=== PATIENT | female | born 1960 | race Caucasian/White ===

== ENCOUNTER 2020-10-14 08:56 | Outpatient (CLI) | payer BC, OTHER ==
[~2020-10-14] VITALS: Ht 157.5 cm; Wt 79.0 kg
[2020-10-14] MEDS ORDERED: ALPR1TAB2 PO (12:25)
[2020-10-14] MEDS ORDERED: AMIT50TA3 PO (12:25)
[2020-10-14] MEDS ORDERED: DICL75TA2 PO (12:25)
[2020-10-14] MEDS ORDERED: BACL10TA PO (12:25)
[2020-10-14] MEDS ORDERED: METF500S5 PO (12:25)
[2020-10-14] MEDS ORDERED: CITA40TA19 PO (12:25)
[2020-10-14] MEDS ORDERED: TRAM50TA3 PO (12:25)
[2020-10-14] MEDS ORDERED: LISI10TA25 PO (12:25)
[2020-10-14] MEDS ORDERED: HYDR-3817 PO (12:25)
== END 2020-10-14 12:57 | disposition home or self-care (01) ==
LOC: PREOP 08:56
PROVIDERS: ATTEND Urology
DX: Z01.818 Encounter for other preprocedural examination (principal)

== ENCOUNTER 2020-10-18 07:21 | Day surgery (SDC) | payer BC, OTHER ==
[2020-10-18] VITALS (12 sets, daily range): BP systolic 117–176; BP diastolic 61–92
[~2020-10-18] VITALS: Ht 157.5 cm; Wt 79.0 kg
[~2020-10-18 07:21] MED LIST: ALPR1TAB2 PO; AMIT50TA3 PO; BACL10TA PO; CITA40TA19 PO; DICL75TA2 PO; HYDR-3817 PO; LISI10TA25 PO; METF500S5 PO; TRAM50TA3 PO
[2020-10-18] MEDS ORDERED: cefTRIAXone FOR IV USE 1,000 MG in WATER (STERILE) FOR INJECTION 10 ML IV ONE (07:30)
[2020-10-18] MEDS: LACTATED RINGERS 1,000 ML IV PRN ×2 (07:52→09:27)
--- NOTE | 2020-10-18 08:13 | Progress Note-Pre Operative ---
Pre-Operative Progress Note H&P Reviewed The H&P was reviewed, patient examined and no changes noted. Date Seen by Provider: Oct 18, 2020 Time Seen by Provider: 08:13 Date H&P Reviewed: Oct 18, 2020 Time H&P Reviewed: 08:13 Pre-Operative Diagnosis: CYSTOCELE AND SOFI KATARZYNA CRAIN MD Oct 18, 2020 08:13
[2020-10-18] MEDS ORDERED: CATHETER FLUSH 10 ML SYR IV PRN (08:15)
--- NOTE | 2020-10-18 08:17 | Progress Note-Post Operative ---
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
[2020-10-18] MEDS ORDERED: ESTRADIOL VAGINAL CREAM 42.5 GM (ESTRACE) VG ONE (08:18)
[2020-10-18] MEDS ORDERED: LIDOCAINE/EPI 1%-1:100,000 (XYLOCAINE) 20ML ONE (08:18)
[2020-10-18] MEDS ORDERED: SEVOFLURANE (ULTANE) 15 ML INHAL SOLN ONE ×2 (08:24→09:22)
[2020-10-18] MEDS ORDERED: ONDANSETRON 4 MG/2 ML (SDV) Z0FRAN ONE (08:24)
[2020-10-18] MEDS ORDERED: LIDOCAINE PF 2% 5 ML (XYLOCAINE) VIAL ONE (08:24)
[2020-10-18] MEDS ORDERED: proPOfol 200 MG/20 ML (DIPRIVAN) VIAL IV ONE (08:24)
[2020-10-18] MEDS ORDERED: MIDAZOLAM 2 MG/2 ML (VERSED) VIAL ONE (08:25)
[2020-10-18] MEDS ORDERED: fentaNYL INJ 100 MCG/2 ML AMP ONE (08:25)
[2020-10-18] MEDS ORDERED: ROCURONIUM 10 MG/ML 5 ML SYRINGE IV ONE (08:25)
[2020-10-18] MEDS ORDERED: GLYCOPYRROLATE 0.2 MG/ML (ROBINUL) 2 ML VIAL ONE (09:19)
[2020-10-18] MEDS ORDERED: NEOSTIGMINE 3 MG/3 ML VIAL ONE (09:19)
[2020-10-18] MEDS ORDERED: ONDANSETRON 4 MG/2 ML (SDV) Z0FRAN IVP PRN (10:00)
[2020-10-18] MEDS ORDERED: MEPERIDINE (DEMEROL) INJ 50 MG/ML IVP ONE (10:00)
[2020-10-18] MEDS ORDERED: morphine INJ 10 MG/ML 1ML (SYR OR VIAL) IVP ONE (10:00)
[2020-10-18] MEDS ORDERED: HYDROmorphone 2 MG/ML VIAL (DILAUDID) IV ONE (10:00)
--- NOTE | 2020-10-18 10:39 | Anesthesia-General Post-Op ---
General Patient Condition Mental Status/LOC: Same as Preop Cardiovascular: Satisfactory Nausea/Vomiting: Absent Respiratory: Satisfactory Pain: Controlled Complications: Absent Post Op Complications Complications None Follow Up Care/Instructions Patient Instructions None needed. Anesthesia/Patient Condition Patient Condition Patient is doing well, no complaints, stable vital signs, no apparent adverse anesthesia problems. No complications reported per nursing. JESUS BATISTA CRNA Oct 18, 2020 10:39
[2020-10-18] MEDS: KETOROLAC 30 MG/ML VIAL IV PRN ×2 (11:20→18:15)
[2020-10-18] MEDS: LACTATED RINGERS 1,000 ML IV SCH (13:22)
--- NOTE | 2020-10-18 15:57 | OPERATIVE REPORT ---
DATE OF SERVICE: 10/18/2020 PREOPERATIVE DIAGNOSES: Cystocele and stress urinary incontinence. POSTOPERATIVE DIAGNOSES: Cystocele and stress urinary incontinence. OPERATION PERFORMED: Anterior repair, pubovaginal sling and cystoscopy. SURGEON: Hector Crain MD ANESTHESIA: General. COMPLICATIONS: None. DESCRIPTION OF PROCEDURE: Under satisfactory general anesthesia, the patient in extended lithotomy position, the abdomen, genitalia and thigh with separate vaginal prep were prepped and draped in the usual sterile fashion. Tovar catheter was inserted and the bladder was drained. Anterior vaginal wall was infiltrated with 2% lidocaine jelly. An incision was made vertically in the anterior vaginal wall and dissection was carried down to the fascial layer and then toward the pubic arch for insertion of the sling. The fascia was approximated with interrupted 2-0 Vicryl giving excellent support to the bladder. Then, the Desara One Sling device was passed using the described technique. The sling was sitting nicely under the mid urethra with no twist or tension and passage of a curved hemostat easily between it and the underlying tissue. I removed the Tovar catheter to perform a cystoscopy to confirm the integrity of the bladder, ureteral orifices and urethra with no foreign body, left the bladder half full and removed the cystoscope to perform a manual Valsalva maneuver that was negative. I reinserted a Tovar catheter a day again draining clear fluid. I excised the excess vaginal mucosa and then approximated the vaginal mucosa with a running 2-0 Vicryl Rapide suture type. Two grams Estrace vaginal pack was inserted. Needle, sponge, instrument counts were correct x2. Estimated blood loss was less than 50 mL, none of which was replaced. The patient tolerated the procedure and anesthesia well and was sent to recovery room in stable condition. Job ID: [id number] DocumentID: [id number] Dictated Date: 10/18/2020 09:40:40 Reflow Operator Date: 10/18/2020 15:56:40 Dictated By: HECTOR CRAIN MD
[2020-10-19 00:40] VITALS: BP 123/69
[2020-10-19] MEDS: LACTATED RINGERS 1,000 ML IV SCH ×2 (00:40→06:13)
[2020-10-19] MEDS: KETOROLAC 30 MG/ML VIAL IV PRN ×2 (00:40→06:24)
[2020-10-19 03:40] VITALS: BP 113/65
[2020-10-19 09:30] VITALS: BP 127/72
--- NOTE | 2020-10-19 09:49 | Progress Note - Urology ---
Progress Note-Urology Progress Notes/Assess & Plan Progress/Assessment & Plan AFEBRILE, VSS. DOING AND FEELING VERY WELL. NO COMPLAINTS. VOIDING ON OWN FEELS EMPTYING WELL. DRY, NO LEAKAGE. HAPPY. CHECK PVR AND MANAGE ACCORDINGLY. Final Diagnosis CYSTOCELE AND SOFI KATARZYNA CRAIN MD Oct 19, 2020 09:49
[2020-10-19] MEDS ORDERED: CIPR-226 PO (10:17)
[2020-10-19] MEDS ORDERED: TRAM50TA3 PO (10:18)
[2020-10-19 10:45] VITALS: BP 127/72
== END 2020-10-19 10:45 | disposition home or self-care (01) ==
LOC: SDC 07:21 → WS 10:50 → SDC 10-19 10:45
PROVIDERS: ATTEND Urology
DX: N81.10 Cystocele, unspecified (principal); N39.3 Stress incontinence (female) (male); I10 Essential (primary) hypertension; E11.9 Type 2 diabetes mellitus without complications; Z79.84 Long term (current) use of oral hypoglycemic drugs; Z79.899 Other long term (current) drug therapy
CPT/HCPCS: 57240; 57288; 82962; 87081; 94664; C1771

== ENCOUNTER 2021-08-25 22:24 | Emergency (ER) | payer OTHER ==
[~2021-08-25] VITALS: Ht 157.5 cm; Wt 78.9 kg
[~2021-08-25 22:24] MED LIST changes: +CIPR-226 PO
[2021-08-25 23:00] VITALS: BP 157/96
--- NOTE | 2021-08-26 02:59 | ED Fall/Injury ---
General Chief Complaint: Trauma-Non Activation Stated Complaint: FALL Nursing Triage Note: Pt arrives via POV from work at [employer] [facility] with c/o right knee pain post fall. 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 Pt reports landing on her right knee, states she has had multiple sx on this knee in the past. Pt ambulatory on arrival to ED with steady gait. Source: patient Exam Limitations: no limitations History of Present Illness Date Seen by Provider: Aug 26, 2021 Allergies and Home Medications Allergies Coded Allergies: No Known Drug Allergies (Unverified , 10/14/20) Patient Home Medication List Alprazolam (Xanax) 1 Mg Tablet, 1 MG PO BID PRN for ANXIETY, (Reported) Entered as Reported by: LI BANKS on 10/14/20 1225 Amitriptyline HCl (Amitriptyline HCl) 50 Mg Tablet, 50 MG PO DAILY, (Reported) Entered as Reported by: LI BANKS on 10/14/20 1225 Baclofen (Baclofen) 10 Mg Tablet, 10 MG PO QID PRN for SPASMS, (Reported) Entered as Reported by: LI BANKS on 10/14/20 1225 Ciprofloxacin HCl (Cipro) 250 Mg Tablet, 250 MG PO BID Prescribed by: SHEEBA SKELTON on 10/19/20 1017 Citalopram Hydrobromide (Celexa) 40 Mg Tablet, 40 MG PO DAILY, (Reported) Entered as Reported by: LI BANKS on 10/14/20 1225 Diclofenac Sodium (Diclofenac Sodium) 75 Mg Tablet.dr, 150 MG PO DAILY, (Reported) Entered as Reported by: LI BANKS on 10/14/20 1225 Lisinopril (Lisinopril) 10 Mg Tablet, 10 MG PO DAILY, (Reported) Entered as Reported by: LI BANKS on 10/14/20 1225 Metformin HCl (Metformin HCl) 500 Mg/5 Ml Solution, 1,000 MG PO DAILY, (Reported) Entered as Reported by: LI BANKS on 10/14/20 1225 Tramadol HCl (Tramadol HCl) 50 Mg Tablet, 50 MG PO Q4H Prescribed by: SHEEBA SKELTON on 10/19/20 1018 Past Bpyvodz-Lqmrdr-Ttpwec Hx Patient Social History Tobacco Use?: Yes Tobacco type used: Cigarettes Smoking Status: Current Everyday Smoker Use of E-Cig and/or Vaping dev: No Substance use?: No Alcohol Use?: No Pt feels they are or have been: No Immunizations Up To Date Influenza Vaccine Up-to-Date: Yes; Up-to-Date COVID19 Vaccine Covering Machine Operator: Profound Seasonal Allergies Seasonal Allergies: Yes (TAKES CLARITIN) Past Medical History Surgeries: Yes Abdominal, Gallbladder, Hysterectomy, Orthopedic, Tubal Ligation Respiratory: Yes Chronic Bronchitis Currently Using CPAP: No Currently Using BIPAP: No Cardiac: Yes High Cholesterol, Hypertension Neurological: No 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 oz. kg; 31.00 BMI Method: Progress/Results/Core Measures Results/Orders My Orders Orders - RENEE JEAN MD Knee, Right, 3 Views (08/26/21 00:29) Vital Signs/I&O 08/25/21 23:00 Temp 36.7 Pulse 95 Resp 18 B/P (MAP) 157/96 (116) Pulse Ox 98 O2 Delivery Room Air Blood Pressure Mean: 116 Departure Impression Primary Impression: Contusion of right knee Qualified Codes: S80.01XA - Contusion of right knee, initial encounter Additional Impression: Fall on same level Qualified Codes: W18.30XA - Fall on same level, unspecified, initial encounter Disposition: HOME, SELF-CARE Condition: Stable Departure-Patient Inst. Decision time for Depature: 02:55 Referrals: MIKAYLA MCINTOSH MD (PCP) Primary Care Physician Patient Instructions: Contusion (DC) Add. Discharge Instructions: You may ice in 20-minute intervals and take your usual diclofenac and Ultram for pain. Rest your knee this morning until you are able to get the official radiology read. Please call after 8:00 to obtain the official radiologist report. Call with questions or concerns. Return to care if you have worsening symptoms. All discharge instructions reviewed with patient and/or family. Voiced understanding. RENEE JEAN MD Aug 26, 2021 02:59
--- NOTE | 2021-08-26 06:54 | Diagnostic Imaging Report ---
INDICATION: Knee pain post fall, tripped. History of multiple surgeries on knee. TECHNIQUE: 3 views of the right knee CORRELATION STUDY: None FINDINGS: There is moderate joint space narrowing both medially and laterally. Marginal osteophyte formation is noted particularly laterally. Advanced degenerative change also appears to be present at the patellofemoral compartment with joint space narrowing and spur formation. Mild soft tissue edema. IMPRESSION: 1. Negative for acute bony abnormality of the knee. Advanced multi-compartment degenerative change. Dictated by: Dictated on workstation # [id number]
== END 2021-08-26 03:33 | disposition home or self-care (01) ==
LOC: EDUNIT# 22:24 → ER 22:26
DX: S80.01XA Contusion of right knee, initial encounter (principal); I10 Essential (primary) hypertension; F17.210 Nicotine dependence, cigarettes, uncomplicated; Z79.899 Other long term (current) drug therapy; W01.0XXA Fall on same level from slipping, tripping and stumbling without subsequent striking against object, initial encounter; Y92.59 Other trade areas as the place of occurrence of the external cause; Y99.0 Civilian activity done for income or pay
CPT/HCPCS: 73562

== ENCOUNTER 2022-01-17 05:33 | Outpatient (CLI) | payer OTHER ==
[~2022-01-17] VITALS: Ht 157.5 cm; Wt 73.0 kg
[2022-01-17 09:35] LABS: BASOPHILS # (AUTO) 0.1 10^3/uL (0.0-0.1); BASOPHILS % (AUTO) 1 % (0-10); EOSINOPHILS # (AUTO) 0.2 10^3/uL (0.0-0.3); EOSINOPHILS % (AUTO) 3 % (0-10); HEMATOCRIT 37 % (35-52); HEMOGLOBIN 12.3 g/dL (11.5-16.0); LYMPHOCYTES # (AUTO) 2.1 10^3/uL (1.0-4.0); LYMPHOCYTES % (AUTO) 37 % (12-44); MEAN CORPUSCULAR HEMOGLOBIN 30 pg (25-34); MEAN CORPUSCULAR HGB CONC 33 g/dL (32-36); MEAN CORPUSCULAR VOLUME 91 fL (80-99); MEAN PLATELET VOLUME 11.3 fL (9.0-12.2); MONOCYTES # (AUTO) 0.4 10^3/uL (0.0-1.0); MONOCYTES % (AUTO) 8 % (0-12); NEUTROPHILS # (AUTO) 2.9 10^3/uL (1.8-7.8); NEUTROPHILS % (AUTO) 51 % (42-75); PLATELET COUNT 251 10^3/uL (130-400); WHITE BLOOD COUNT 5.7 10^3/uL (4.3-11.0)
[2022-01-17 09:35] LABS: CLARITY,URINE CLEAR; COLOR,URINE YELLOW; GLUCOSE, URINE (UA) NEGATIVE (NEGATIVE); KETONES,URINE TRACE (NEGATIVE); LEUKOCYTE ESTERASE ,URINE NEGATIVE (NEGATIVE); NITRITE,URINE NEGATIVE (NEGATIVE); PROTEIN,URINE TRACE (NEGATIVE)
[2022-01-17 09:39] LABS: ALBUMIN 4.3 GM/DL (3.2-4.5); INR 0.9 (0.8-1.4); POTASSIUM 4.2 MMOL/L (3.6-5.0); PROTHROMBIN TIME PATIENT 12.9 SEC (12.2-14.7)
[2022-01-17 09:40] LABS: CALCIUM 9.3 MG/DL (8.5-10.1)
[2022-01-17 09:41] LABS: TOTAL PROTEIN 6.8 GM/DL (6.4-8.2)
[2022-01-17 09:43] LABS: BILIRUBIN,TOTAL 0.3 MG/DL (0.1-1.0)
[2022-01-17 09:45] LABS: CREATININE SERUM 1.07 MG/DL (0.60-1.30)
[2022-01-17 09:56] LABS: BACTERIA,URINE NEGATIVE /HPF; BILIRUBIN,URINE 1+ (NEGATIVE); SQUAMOUS EPITHELIAL CELL,UR 0-2 /HPF; WBC,URINE RARE /HPF
[2022-01-17 09:57] LABS: ERYTHROCYTE SEDIMENTATION RATE 9 MM/HR (0-30)
--- NOTE | 2022-01-17 10:01 | Diagnostic Imaging Report ---
Indication: Preop for knee replacement surgery. Time of Exam: 9:36 AM No prior chest radiographs are available for comparison. Heart size normal. Lungs are clear of acute infiltrates. The pulmonary vascularity is normal. There is no effusion or pneumothorax. There are calcifications at the costochondral junctions bilaterally. Impression: No acute cardiopulmonary process is detected. Dictated by: Dictated on workstation # [id number]
[2022-01-17] MEDS ORDERED: ALBU18HF2 INH (10:09)
[2022-01-17] MEDS ORDERED: ATOR20TA66 PO (10:12)
[2022-01-17] MEDS ORDERED: BACL10TA PO (10:12)
== END 2022-01-18 09:43 ==
LOC: PREOP 05:33
PROVIDERS: ATTEND Orthopaedic Surgery
DX: Z01.818 Encounter for other preprocedural examination (principal); M17.11 Unilateral primary osteoarthritis, right knee
CPT/HCPCS: 36415; 71046; 80053; 81000; 82308; 85025; 85610; 85652; 86850; 86900; 86901; 87081; 93005

== ENCOUNTER 2022-01-21 11:03 | Observation (INO) | payer OTHER ==
[~2022-01-21] VITALS: Ht 157.4 cm; Wt 70.7 kg
[~2022-01-21 11:03] MED LIST changes: +ALBU18HF2 INH; +ATOR20TA66 PO
[2022-01-21] MEDS ORDERED: NS IV 1000 ML 1,000 ML IV SCH ×3 (11:30→15:45)
[2022-01-21] MEDS ORDERED: NALOXONE 2 MG/2 ML (NARCAN) SYR IV ONE ×2 (11:30→12:30)
[2022-01-21 11:31] LABS: BASOPHILS # (AUTO) 0.1 10^3/uL (0.0-0.1); BASOPHILS % (AUTO) 0 % (0-10); EOSINOPHILS % (AUTO) 0 % (0-10); HEMATOCRIT 34 % (35-52); HEMOGLOBIN 11.5 g/dL (11.5-16.0); LYMPHOCYTES # (AUTO) 1.6 10^3/uL (1.0-4.0); LYMPHOCYTES % (AUTO) 8 % (12-44); MEAN CORPUSCULAR HEMOGLOBIN 31 pg (25-34); MEAN CORPUSCULAR HGB CONC 34 g/dL (32-36); MEAN CORPUSCULAR VOLUME 91 fL (80-99); MONOCYTES # (AUTO) 1.3 10^3/uL (0.0-1.0); MONOCYTES % (AUTO) 7 % (0-12); NEUTROPHILS # (AUTO) 15.8 10^3/uL (1.8-7.8); NEUTROPHILS % (AUTO) 84 % (42-75); PLATELET COUNT 247 10^3/uL (130-400); WHITE BLOOD COUNT 18.8 10^3/uL (4.3-11.0)
[2022-01-21 11:40] LABS: CHLORIDE 105 MMOL/L (98-107); POTASSIUM 4.8 MMOL/L (3.6-5.0); SODIUM 138 MMOL/L (135-145)
[2022-01-21 11:41] LABS: ALBUMIN 4.3 GM/DL (3.2-4.5)
[2022-01-21 11:42] LABS: CALCIUM 8.9 MG/DL (8.5-10.1)
[2022-01-21 11:43] LABS: GLUCOSE 149 MG/DL (70-105); TOTAL PROTEIN 6.6 GM/DL (6.4-8.2)
[2022-01-21 11:44] LABS: CARBON DIOXIDE 17 MMOL/L (21-32)
[2022-01-21 11:45] LABS: BILIRUBIN,TOTAL 0.4 MG/DL (0.1-1.0)
[2022-01-21 11:47] LABS: ALKALINE PHOSPHATASE 76 U/L (40-136); CREATININE SERUM 3.61 MG/DL (0.60-1.30); GFR ESTIMATED 14
[2022-01-21 11:48] LABS: BUN/CREATININE RATIO 8
[2022-01-21 11:50] LABS: ALANINE AMINOTRANSFERASE 35 U/L (0-55); SALICYLATE < 5.0 MG/DL (5.0-20.0)
--- NOTE | 2022-01-21 11:51 | ED General ---
General Chief Complaint: Altered Mental Status Stated Complaint: AMS Nursing Triage Note: PT ARRIVED VIA [facility] FROM HOME WITH COMPLAINT OF ABD PAIN AND VOMITING. PT ARRIVED LETHARGIC. PT WAS GIVEN 4MG OF ZOFRAN BY EMS. PER PT WAS FOUND ON FLOOR AND VOMITING. STATES THAT SHE TAKES XANAX AND HYROCODONE AT HOME. BED IS IN LOWEST POSITION, BED RAILS ARE UP X2 AND CALL LIGHT IS IN REACH. Source of Information: EMS, Family () Exam Limitations: Intoxication, Physical Impairments History of Present Illness Date Seen by Provider: Jan 21, 2022 Time Seen by Provider: 11:02 Initial Comments Patient is a 61-year-old female who presents to the emergency department by EMS chief complaint altered mental status, vomiting. EMS apparently did a "scoop and run" they did not even get her name or date of prior to leaving the house. They stated the was following in his car. When arrived he was able to provide her name and demographics. He states her last known well time was midnight. At 430 this morning she got up and went to the bathroom. She was not acting like herself at that point and then throughout the morning that she was altered and crawling on the floor and over him in the bed. He states she did have an episode of nausea and vomiting in the bathroom. He states she takes a Xanax and hydrocodone he is unsure when she took it last. Most of the time she takes Xanax to sleep at night. They did spend quite a bit of time at the drag races yesterday and were down to wind from some of the fumes. He states she takes her hydrocodone for chronic right knee pain and is about to have surgery on her knee. She is also diabetic. No recent fevers, chills, cough or congestion or COVID symptoms. She is vaccinated. He has never seen her like this before. No history of stroke or heart attack. She does not drink alcohol or use illicit drugs to his knowledge. No recent falls or trauma that he is aware of. Review of systems from the is negative except as stated. Timing/Duration: 12-24 Hours Severity: Severe Allergies and Home Medications Allergies Coded Allergies: morphine (Unverified Allergy, Unknown, Vomiting, 01/17/22) Patient Home Medication List Home Medication List Reviewed: Yes Albuterol Sulfate (Ventolin Hfa) 90 Mcg Hfa.aer.ad, 2 PUFF INH Q4H PRN for SHOR TNESS OF BREATH, (Reported) Entered as Reported by: ANGELO ESTEBAN on 01/22/221006 Last Action: Reviewed Alprazolam (Alprazolam) 1 Mg Tablet, 1 MG PO BID PRN for ANXIETY, (Reported) Entered as Reported by: ANGELO ESTEBAN on 01/22/221006 Last Action: Reviewed Amitriptyline HCl (Amitriptyline HCl) 50 Mg Tablet, 50 MG PO HS, (Reported) Entered as Reported by: LI BANKS on 10/14/20 1225 Last Action: Reviewed Atorvastatin Calcium (Atorvastatin Calcium) 20 Mg Tablet, 20 MG PO HS, (Reported) Entered as Reported by: ANGELLA XAVIER on 01/17/22 1012 Last Action: Reviewed Baclofen (Baclofen) 20 Mg Tablet, 20 MG PO TID, (Reported) Entered as Reported by: ANGELO ESTEBAN on 01/22/221006 Last Action: Reviewed Cetirizine HCl (Cetirizine HCl) 10 Mg Tablet, 10 MG PO DAILY PRN for ALLERGY SYMPTOMS, (Reported) Entered as Reported by: ANGELO ESTEBAN on 01/22/221006 Last Action: Reviewed Citalopram Hydrobromide (Celexa) 40 Mg Tablet, 40 MG PO HS, (Reported) Entered as Reported by: LI BANKS on 10/14/20 1225 Last Action: Reviewed Diltiazem HCl (Diltiazem 24Hr ER) 240 Mg Cap.er.24h, 240 MG PO DAILY, (Reported) Entered as Reported by: ANGELO ESTEBAN on 01/22/221006 Last Action: Reviewed Hydrocodone/Acetaminophen (Hydrocodone-Acetamin 7.5-325) 7.5 Mg-325 Mg Tablet, 1 EA PO BID PRN for PAIN-MODERATE (5-7), (Reported) Entered as Reported by: ANGELO ESTEBAN on 01/22/221006 Last Action: Reviewed Lisinopril/Hydrochlorothiazide (Lisinopril-Hctz 10-12.5 mg Tab) 10 Mg-12.5 Mg Tablet, 1 EA PO DAILY, (Reported) Entered as Reported by: ANGELO ESTEBAN on 01/22/221006 Last Action: Reviewed Metformin HCl (Metformin HCl) 1,000 Mg Tablet, 1,000 MG PO BID, (Reported) Entered as Reported by: ANGELO ESTEBAN on 01/22/22 1007 Last Action: Reviewed Tramadol HCl (Tramadol HCl) 50 Mg Tablet, 50-100 MG PO Q6H PRN for PAIN-MODERATE (5-7), (Reported) Entered as Reported by: ANGELO ESTEBAN on 01/22/22 1007 Last Action: Reviewed Discontinued Medications Albuterol Sulfate (Ventolin Hfa) 90 Mcg Hfa.aer.ad, 18 GM INH PRN, (Reported) Discontinued Reason: No Longer Taking Entered as Reported by: ANGELLA XAVIER on 01/17/22 1009 Last Action: Discontinued Alprazolam (Xanax) 1 Mg Tablet, 1 MG PO BID PRN for ANXIETY, (Reported) Discontinued Reason: No Longer Taking Entered as Reported by: LI BANKS on 10/14/20 1225 Last Action: Discontinued Baclofen (Baclofen) 10 Mg Tablet, 10 MG PO QID PRN for SPASMS, (Reported) Discontinued Reason: No Longer Taking Entered as Reported by: LI BANKS on 10/14/20 1225 Baclofen (Baclofen) 10 Mg Tablet, 20 MG PO, (Reported) Discontinued Reason: No Longer Taking Entered as Reported by: ANGELLA XAVIER on 01/17/22 1012 Last Action: Discontinued Ciprofloxacin HCl (Cipro) 250 Mg Tablet, 250 MG PO BID Discontinued Reason: No Longer Taking Prescribed by: SHEEBA SKELTON on 10/19/20 1017 Diclofenac Sodium (Diclofenac Sodium) 75 Mg Tablet.dr, 150 MG PO DAILY, (Reported) Discontinued Reason: No Longer Taking Entered as Reported by: LI BANKS on 10/14/201224 Last Action: Discontinued Lisinopril (Lisinopril) 10 Mg Tablet, 10 MG PO DAILY, (Reported) Discontinued Reason: No Longer Taking Entered as Reported by: LI BANKS on 10/14/20 122 Last Action: Discontinued Metformin HCl (Metformin HCl) 500 Mg/5 Ml Solution, 1,000 MG PO BID, (Reported) Discontinued Reason: No Longer Taking Entered as Reported by: LI BANKS on 10/14/20 1225 Last Action: Discontinued Tramadol HCl (Tramadol HCl) 50 Mg Tablet, 50 MG PO Q4H Discontinued Reason: No Longer Taking Prescribed by: SHEEBA SKELTON on 10/19/20 1018 Last Action: Discontinued Review of Systems Review of Systems Constitutional: see HPI Unable to obtain review of systems from the patient secondary to her altered state Past Jqstskl-Gxtftr-Csphfw Hx Patient Social History Tobacco Use?: Yes Tobacco type used: Cigarettes Smoking Status: Current Everyday Smoker Substance use?: No Alcohol Use?: No Pt feels they are or have been: Unable to obtain Immunizations Up To Date Influenza Vaccine Up-to-Date: Yes; Up-to-Date First/Initial COVID19 Vaccinat: 2019 Second COVID19 Vaccination Asad: 2020 Third COVID19 Vaccination Date: 2020 Seasonal Allergies Seasonal Allergies: Yes Past Medical History Surgeries: Yes Gallbladder, Hysterectomy, Tubal Ligation Respiratory: Yes (INHALER USE) Emphysema Currently Using CPAP: No Currently Using BIPAP: No Cardiac: Yes High Cholesterol, Hypertension 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 oz. kg; 28.00 BMI Method: General Appearance: No Apparent Distress, WD/WN Eyes: Bilateral Eye Other (Pupils are 2 mm and reactive) HEENT: PERRL/EOMI, Pharynx Normal, Other (Dry mucous membranes, diminished gag reflex) Neck: Normal Inspection Respiratory: Lungs Clear, Normal Breath Sounds, No Accessory Muscle Use, No Res piratory Distress, Other (Sonorous breath sounds) Cardiovascular: Regular Rate, Rhythm, Normal Peripheral Pulses, Other (Blood pressure upper 90s systolic) Gastrointestinal: Soft Extremity: Normal Inspection, No Pedal Edema, Other (Small abrasion right knee) Neurologic/Psychiatric: Other (Patient is profoundly altered. She responds with eyelid fluttering to deep sternal rub. She says ouch to deep sternal rub. She does not really localize pain. GCS = 9) Skin: Warm/Dry, Pallor Progress/Results/Core Measures Suspected Sepsis SIRS Temperature: Pulse: 80 Respiratory Rate: 10 Laboratory Tests 01/21/22 11:15: White Blood Count 18.8H Blood Pressure 101 /61 Mean: 74 Laboratory Tests 01/21/22 11:15: Creatinine 3.61#H, Platelet Count 247, Total Bilirubin 0.4 Results/Orders Lab Results Laboratory Tests Test 01/21/22 11:15 01/21/22 12:18 01/21/22 12:30 Range/Units White Blood Count 18.8 H 4.3-11.0 10^3/uL Red Blood Count 3.73 L 3.80-5.11 10^6/uL Hemoglobin 11.5 11.5-16.0 g/dL Hematocrit 34 L 35-52 % Mean Corpuscular Volume 91 80-99 fL Mean Corpuscular Hemoglobin 31 25-34 pg Mean Corpuscular Hemoglobin Concent 34 32-36 g/dL Red Cell Distribution Width 13.8 10.0-14.5 % Platelet Count 247 130-400 10^3/uL Mean Platelet Volume 11.0 9.0-12.2 fL Immature Granulocyte % (Auto) 1 % Neutrophils (%) (Auto) 84 H 42-75 % Lymphocytes (%) (Auto) 8 L 12-44 % Monocytes (%) (Auto) 7 0-12 % Eosinophils (%) (Auto) 0 0-10 % Basophils (%) (Auto) 0 0-10 % Neutrophils # (Auto) 15.8 H 1.8-7.8 10^3/uL Lymphocytes # (Auto) 1.6 1.0-4.0 10^3/uL Monocytes # (Auto) 1.3 H 0.0-1.0 10^3/uL Eosinophils # (Auto) 0.0 0.0-0.3 10^3/uL Basophils # (Auto) 0.1 0.0-0.1 10^3/uL Immature Granulocyte # (Auto) 0.1 0.0-0.1 10^3/uL Neutrophils % (Manual) 80 % Lymphocytes % (Manual) 11 % Monocytes % (Manual) 7 % Eosinophils % (Manual) 0 % Basophils % (Manual) 0 % Band Neutrophils 2 % Blood Morphology Comment NORMAL Sodium Level 138 135-145 MMOL/L Potassium Level 4.8 3.6-5.0 MMOL/L Chloride Level 105 98-107 MMOL/L Carbon Dioxide Level 17 L 21-32 MMOL/L Anion Gap 16 H 5-14 MMOL/L Blood Urea Nitrogen 30 H 7-18 MG/DL Creatinine 3.61 #H 0.60-1.30 MG/DL Estimat Glomerular Filtration Rate 14 BUN/Creatinine Ratio 8 Glucose Level 149 H 70-105 MG/DL Calcium Level 8.9 8.5-10.1 MG/DL Corrected Calcium 8.7 8.5-10.1 MG/DL Total Bilirubin 0.4 0.1-1.0 MG/DL Aspartate Amino Transf (AST/SGOT) 24 5-34 U/L Alanine Aminotransferase (ALT/SGPT) 35 0-55 U/L Alkaline Phosphatase 76 40-136 U/L Total Protein 6.6 6.4-8.2 GM/DL Albumin 4.3 3.2-4.5 GM/DL Salicylates Level < 5.0 L 5.0-20.0 MG/DL Acetaminophen Level < 10 L 10-30 UG/ML Serum Alcohol < 10 <10 MG/DL Total Creatine Kinase 91 29-168 U/L Urine Color YELLOW Urine Clarity CLOUDY Urine pH 5.5 5-9 Urine Specific [place] >=1.030 1.016-1.022 Urine Protein 1+ H NEGATIVE Urine Glucose (UA) NEGATIVE NEGATIVE Urine Ketones NEGATIVE NEGATIVE Urine Nitrite NEGATIVE NEGATIVE Urine Bilirubin 1+ H NEGATIVE Urine Urobilinogen 0.2 < = 1.0 MG/DL Urine Leukocyte Esterase NEGATIVE NEGATIVE Urine RBC (Auto) NEGATIVE NEGATIVE Urine RBC 0-2 /HPF Urine WBC 0-2 /HPF Urine Squamous Epithelial Cells 0-2 /HPF Urine Crystals PRESENT H /LPF Urine Amorphous Sediment RARE YUE URATES H /LPF Urine Bacteria FEW H /HPF Urine Casts PRESENT /LPF Urine Hyaline Casts 5-10 H /LPF Urine Mucus NEGATIVE /LPF Urine Culture Indicated NO Urine Opiates Screen POSITIVE H NEGATIVE Urine Oxycodone Screen NEGATIVE NEGATIVE Urine Methadone Screen NEGATIVE NEGATIVE Urine Propoxyphene Screen NEGATIVE NEGATIVE Urine Barbiturates Screen NEGATIVE NEGATIVE Ur Tricyclic Antidepressants Screen POSITIVE H NEGATIVE Urine Phencyclidine Screen NEGATIVE NEGATIVE Urine Amphetamines Screen NEGATIVE NEGATIVE Urine Methamphetamines Screen NEGATIVE NEGATIVE Urine Benzodiazepines Screen POSITIVE H NEGATIVE Urine Cocaine Screen NEGATIVE NEGATIVE Urine Cannabinoids Screen NEGATIVE NEGATIVE My Orders Orders - SHIVANI ENCISO MD Ua Culture If Indicated (01/21/22 11:23) Cbc With Automated Diff (01/21/22 11:23) Comprehensive Metabolic Panel (01/21/22 11:23) Alcohol (01/21/22 11:23) Drug Screen Stat (Urine) (01/21/22 11:23) Acetaminophen (01/21/22 11:23) Salicylate (01/21/22 11:23) Ekg Tracing (01/21/22 11:23) Ed Iv/Invasive Line Start (01/21/22 11:23) Monitor-Rhythm Ecg Trace Only (01/21/22 11:) Bh Status Checks/Observation Q15M (01/21/22 11:23) Ed Iv/Invasive Line Start (01/21/22 11:23) Ns Iv 1000 Ml (Sodium Chloride 0.9%) (01/21/22 11:30) Naloxone Injection (Narcan Injection) (01/21/22 11:30) Manual Differential (01/21/22 11:15) Chest 1 View, Ap/Pa Only (01/21/22 11:58) Ns Iv 1000 Ml (Sodium Chloride 0.9%) (01/21/22 12:30) Naloxone Injection (Narcan Injection) (01/21/22 12:30) Catheter(Urinary) Insert & Ass 03,15 (01/21/22 12:31) Ed Admission (Communication) (01/21/22 12:45) Medications Given in ED Vital Signs/I&O 01/21/22 11:03 Temp 35.8 Pulse 80 Resp 10 B/P (MAP) 101/61 (74) Pulse Ox 94 O2 Delivery Nasal Cannula O2 Flow Rate 2.00 01/22/22 00:00 Intake Total 1000 ml Balance 1000 ml Capillary Refill : Less Than 3 Seconds Blood Pressure Mean: 74 Point of Care Testing Finger Stick Blood Glucose: 154 Blood Glucose Action Taken: rn notified Progress Note : Time: 11:52 Progress Note It wasAfter the arrived and we got further history and 2 mg of Narcan. Within about 60 seconds she was opening her eyes and answering her . She relates that she took 2 Xanax tablets and 2 hydrocodone this morning. She remains still quite somnolent. Blood pressure improved. She is getting normal saline. Labs pending. ECG Initial ECG Impression Date: Jan 21, 2022 Initial ECG Impression Time: 11:32 Initial ECG Rate: 77 Initial ECG Rhythm: Normal Sinus Initial ECG Intervals SC 214 QRS 97 QTc 438 Departure Communication (Admissions) Time/Spoke to Admitting Phy: 12:[address] Peters Impression Primary Impression: Acute kidney injury Additional Impressions: Opiate overdose Qualified Codes: T40.604A - Poisoning by unspecified narcotics, undetermined, initial encounter Benzodiazepine overdose Qualified Codes: T42.4X4A - Poisoning by benzodiazepines, undetermined, initial encounter Disposition: ADMITTED INPATIENT Condition: Stable Admissions Decision to Admit Reason: Admit from ER (General) Decision to Admit/Date: Jan 21, 2022 Time/Decision to Admit Time: 12:23 Departure-Patient Inst. Referrals: MIKAYLA MCINTOSH MD (PCP/Family) Primary Care Physician SHIVANI ENCISO MD Jan 21, 2022 11:51
[2022-01-21 11:59] LABS: BAND NEUTROPHILS 2 %; BASOPHILS % (MANUAL) 0 %; EOSINOPHILS % (MANUAL) 0 %; LYMPHOCYTES % (MANUAL) 11 %; MONOCYTES % (MANUAL) 7 %; NEUTROPHILS % (MANUAL) 80 %; RBC MORPH NORMAL
[2022-01-21 12:04] LABS: ACETAMINOPHEN < 10 UG/ML (10-30)
--- NOTE | 2022-01-21 12:14 | Diagnostic Imaging Report ---
INDICATION: Acute mental status change. EXAMINATION: Chest from 01/21/2022. FINDINGS: Bibasilar infiltrates noted. No effusions. No pneumothorax. Heart and pulmonary vasculature appear normal. IMPRESSION: 1. Minimal bibasilar atelectasis versus infiltrate. Dictated by: Dictated on workstation # [id number]
--- NOTE | 2022-01-21 12:35 | History & Physical-Hospitalist ---
History of Present Illness HPI/Chief Complaint Pt is a 61yoCF with a PMH of OA on chronic narcotics who presented to the ER due to AMS. She is unable to provide me much history due to sedation. She attempted to answer some questions but was mostly incomprehensible. Her reports that she took 2 hydrocodone and 2 Xanax this AM and he found her on the floor this morning nearly unresponsive and called EMS. He states this is very abnormal for her. She was given 2mg Narcan by the ER and responded well but slowly had worsening mentation again. Her also reports that she was at the [place] race yesterday and has had poor oral intake for the past few days. We will admit to the ICU for possible Narcan gtt. Source: patient Date Seen 01/21/22 Time Seen by a Provider: 12:29 Attending Physician Harish Sims MD PCP Admitting Physician: Attending Physician: Referring Physician Date of Admission Home Medications & Allergies Home Medications Reviewed patient Home Medication Reconciliation performed by pharmacy medication reconciliations infectious disease technician and/or nursing. Patients Allergies have been reviewed. Allergies Allergies Coded Allergies morphine (Unverified Allergy, Unknown, Vomiting, 01/17/22) Past Nslsbzd-Wfsavj-Klatcz Hx Patient Social History Marrital Status: Employed/Student: employed Tobacco Use?: Yes Tobacco type used: Cigarettes Smoking Status: Current Everyday Smoker Substance use?: No Alcohol Use?: No Pt feels they are or have been: Unable to obtain Immunizations Up To Date Date of Influenza Vaccine: Mar 28, 2021 First/Initial COVID19 Vaccinat: 2019 Second COVID19 Vaccination Asad: 2020 Seasonal Allergies Seasonal Allergies: Yes Current Status Advance Directives: Unable to obtain Communicates: Verbally Primary Language: Slovenian Preferred Spoken Language: Slovenian Is interpretation needed?: No Implanted or Applied Medical D: None Past Medical History Surgeries: Gallbladder, Hysterectomy, Tubal Ligation Emphysema Currently Using CPAP: No Currently Using BIPAP: No High 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, Hypertension 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 oz. kg; 28.00 BMI Method: General Appearance: WD/WN, Other (sedate appearing) HEENT: PERRL/EOMI, Moist Mucous Membranes; No Scleral Icterus (L), No Scleral Icterus (R) Neck: Normal Inspection, Supple Respiratory: Lungs Clear, No Accessory Muscle Use, No Respiratory Distress Cardiovascular: Regular Rate, Rhythm, No Murmur Gastrointestinal: Normal Bowel Sounds, Non Tender, Soft Extremity: Normal Capillary Refill, No Calf Tenderness, No Pedal Edema Neurologic/Psychiatric: Alert; No Aphasia, No Facial Droop; Other (oriented to person and place only- slow to answer, very sedate) Skin: Normal Color, Warm/Dry Results Results/Procedures Labs Laboratory Tests 01/21/22 11:15 Patient resulted labs reviewed. Imaging: Reviewed Imaging Report Imaging [facility] [place] NAME: ANGELA CHANEY [facility] REC#: [id number] PT STATUS: REG ER : 1960 PHYSICIAN: SHIVANI ENCISO MD ADMIT DATE: 01/21/22/ER Draft Date of Exam:01/21/22 CHEST 1 VIEW, AP/PA ONLY INDICATION: Acute mental status change. EXAMINATION: Chest from 01/21/2022. FINDINGS: Bibasilar infiltrates noted. No effusions. No pneumothorax. Heart and pulmonary vasculature appear normal. IMPRESSION: 1. Minimal bibasilar atelectasis versus infiltrate. Dictated on workstation # [id number] Dict: 01/21/22 1211 Trans: 01/21/22 1214 [id number] Interpreted by: CHARITY SWANSON MD Electronically signed by: Assessment/Plan Admission Diagnosis Opoid overdose Admission Status: Observation Assessment and Plan Opoid overdose Accidental overdose with hydrocodone and xanax Likely worsened due to acute renal failure Narcan in ER Will repeat dose and initiate narcan gtt due to poor clearance Also takes baclofen which is likely contributing STALIN Hypotension likely due to hypovolemia/dehydration Continue IVF Tovar in place, monitor UOP Hold Lisinopril/HCTZ NIDDMII Hold metformin due to STALIN SSI if needed Diagnosis/Problems Diagnosis/Problems (1) Acute kidney injury Status: Acute (2) Benzodiazepine overdose Status: Acute Qualifiers: Encounter type: initial encounter Injury intent: undetermined intent Qualified Codes: T42.4X4A - Poisoning by benzodiazepines, undetermined, initial encounter (3) Opiate overdose Status: Acute Qualifiers: Encounter type: initial encounter Injury intent: undetermined intent Qualified Codes: T40.604A - Poisoning by unspecified narcotics, undetermined, initial encounter (4) Osteoarthritis of right knee KIM CARTER MD Jan 21, 2022 12:35
[2022-01-21 12:36] LABS: CLARITY,URINE CLOUDY; COLOR,URINE YELLOW; GLUCOSE, URINE (UA) NEGATIVE (NEGATIVE); KETONES,URINE NEGATIVE (NEGATIVE); LEUKOCYTE ESTERASE ,URINE NEGATIVE (NEGATIVE); NITRITE,URINE NEGATIVE (NEGATIVE); PH,URINE 5.5 (5-9); PROTEIN,URINE 1+ (NEGATIVE)
[2022-01-21 12:47] LABS: AMORPHOUS SEDIMENT,UR RARE AMOR URATES /LPF; BACTERIA,URINE FEW /HPF; RBC,URINE 0-2 /HPF; SQUAMOUS EPITHELIAL CELL,UR 0-2 /HPF; WBC,URINE 0-2 /HPF
[2022-01-21 12:48] LABS: BILIRUBIN,URINE 1+ (NEGATIVE)
[2022-01-21 12:52] LABS: AMPHETAMINE SCREEN, URINE NEGATIVE (NEGATIVE); BARBITURATE SCREEN URINE NEGATIVE (NEGATIVE); BENZODIAZEPINES SCREEN URINE POSITIVE (NEGATIVE); CANNABINOID SCREEN, URINE NEGATIVE (NEGATIVE); COCAINE SCREEN URINE NEGATIVE (NEGATIVE); METHADONE STAT NEGATIVE (NEGATIVE); OPIATE SCREEN URINE POSITIVE (NEGATIVE); OXYCODONE STAT NEGATIVE (NEGATIVE); PROPOXYPHENE STAT NEGATIVE (NEGATIVE); TRICYCLIC ANTIDEPRESSANTS SCRE POSITIVE (NEGATIVE)
[2022-01-21] MEDS ORDERED: LIDOCAINE UROJET 2% GEL 10 ML PKG TOP ONE (13:00)
[2022-01-21] MEDS ORDERED: ONDANSETRON 4 MG/2 ML (SDV) Z0FRAN IV PRN (13:00)
--- NOTE | 2022-01-21 13:21 | Tele-ICU Progress Note ---
Subjective Date Seen by a Provider: Jan 21, 2022 Time Seen by a Provider: 12:58 Subjective/Events-last exam This virtual visit was conducted using real time audio/video. Thank you for asking us to see this patient for accidental OD on BDPs, narcotics. Mild respiratory insufficiency due to undiagnosed COPD. Also STALIN. Recent events: AMS in ER improved w Narcan PMH: Anx., dep., htn., HL, GERD. Probable COPD. SH: smoking history: everyday FH: Non-contributory ROS: as in HPI. PE: VSS. O2 sat 94% on 2 LPM. HEENT: No obvious masses, adenopathy or JVD. Chest: clear to auscultation. CV: RRR S1 S2 No murmur or added sounds. Abd: Non-tender. Bowel sounds Y. : Unremarkable. Tovar Y. 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 Extremities: No edema. Capillary refill < 3 seconds. Skin: unremarkable. Results: Elevated WCC 18.8, BUN 30, Creat 3.61. CXR: Very hyperinflated w minimal bibasal infilts./atel.. Available chart/ vitals / labs / images reviewed. Video assessment done using teleICU camera, rest of exam as per RN. A/P: Mild respiratory insufficiency: Continue present management with O2. Will add PRN duonebs. Monitor for increasing oxygenation needs and/or need for intubation. Critical Care: critically ill patient. Cont. IVF, PRN Narcan, SSI. Discussed with RN Adriana. Asked RN to reach out to eICU if any questions or concerns later. Time spent with patient/coordination of care with other health professionals (mins): 23 Sepsis Event Evaluation Height, Weight, BMI Height: '" Weight: lbs. oz. kg; 28.00 BMI Method: Exam Exam Patient acknowledged, consented, and participated in this virtual visit which was conducted using real time audio/video Vital Signs Date Time Temp Pulse Resp B/P (MAP) Pulse Ox O2 Delivery O2 Flow Rate FiO2 01/21/22 11:03 35.8 80 10 101/61 (74) 94 Nasal Cannula 2.00 Height & Weight Height: '" Weight: lbs. oz. kg; 28.00 BMI Method: General Appearance: WD/WN, Other (sedate appearing) HEENT: PERRL/EOMI, Moist Mucous Membranes; No Scleral Icterus (L), No Scleral Icterus (R) Neck: Normal Inspection, Supple Respiratory: Lungs Clear, No Accessory Muscle Use, No Respiratory Distress Cardiovascular: Regular Rate, Rhythm, No Murmur Capillary Refill: Less Than 3 Seconds Extremity: Normal Capillary Refill, No Calf Tenderness, No Pedal Edema Neurologic/Psychiatric: Alert; No Aphasia, No Facial Droop; Other (oriented to person and place only- slow to answer, very sedate) Skin: Normal Color, Warm/Dry Results Lab Laboratory Tests 01/21/22 11:15 Assessment/Plan Assessment/Plan See free text. Critical Care: Critically Ill Patient CAITLIN OLMOS MD Jan 21, 2022 13:21
[2022-01-21] MEDS ORDERED: RT-ALBUTEROL/IPRATROPIUM 3 ML (DUONEB) VIAL INH PRN (13:30)
[2022-01-21 13:36] VITALS: BP 98/58
[2022-01-21] MEDS: NS IV 1000 ML 1,000 ML IV SCH (14:18)
[2022-01-21] MEDS: inSUlin ASPART (NovoLOG) 1 UNIT/0.01 ML (CHARGE PER UNIT) SC SCH ×2 (16:00→21:00)
[2022-01-21] MEDS ORDERED: ACETAMINOPHEN 325 MG TABLET ONE (18:10)
[2022-01-21] MEDS: ACETAMINOPHEN 325 MG TABLET PO PRN (18:12)
[2022-01-22] MEDS: NS IV 1000 ML 1,000 ML IV SCH ×3 (05:02→08:37)
[2022-01-22 05:30] LABS: HEMATOCRIT 32 % (35-52); HEMOGLOBIN 10.7 g/dL (11.5-16.0); MEAN CORPUSCULAR HEMOGLOBIN 31 pg (25-34); MEAN CORPUSCULAR HGB CONC 33 g/dL (32-36); MEAN CORPUSCULAR VOLUME 93 fL (80-99); MEAN PLATELET VOLUME 11.3 fL (9.0-12.2); PLATELET COUNT 196 10^3/uL (130-400); WHITE BLOOD COUNT 8.6 10^3/uL (4.3-11.0)
[2022-01-22 05:43] LABS: POTASSIUM 4.2 MMOL/L (3.6-5.0)
[2022-01-22 05:44] LABS: CALCIUM 7.9 MG/DL (8.5-10.1)
[2022-01-22 05:49] LABS: CREATININE SERUM 1.12 MG/DL (0.60-1.30)
[2022-01-22] MEDS: inSUlin ASPART (NovoLOG) 1 UNIT/0.01 ML (CHARGE PER UNIT) SC SCH ×2 (06:09→13:04)
[2022-01-22] MEDS ORDERED: ALPR1TAB7 PO (10:07)
[2022-01-22] MEDS ORDERED: BACL20TA PO (10:07)
[2022-01-22] MEDS ORDERED: LISI1TAB44 PO (10:07)
[2022-01-22] MEDS ORDERED: HYDR-3817 PO (10:07)
[2022-01-22] MEDS ORDERED: DILT240C91 PO (10:07)
[2022-01-22] MEDS ORDERED: TRM50T PO (10:07)
[2022-01-22] MEDS ORDERED: ALBU18HF2 INH (10:07)
[2022-01-22] MEDS ORDERED: METF-399 PO (10:07)
[2022-01-22] MEDS ORDERED: CETI10TA17 PO (10:07)
[2022-01-22] MEDS: ACETAMINOPHEN 325 MG TABLET PO PRN (12:22)
--- NOTE | 2022-01-22 13:44 | Physical Therapy Evaluation ---
PT Evaluation-General Medical Diagnosis Admission Date Jan 21, 2022 at 12:46 Medical Diagnosis: STALIN/benzo and opiate OD Onset Date: Jan 21, 2022 Therapy Diagnosis Therapy Diagnosis: debility/weakness Precautions Precautions/Isolations: Fall Prevention, Standard Precautions Referral Physician: Justine Reason for Referral: Evaluation/Treatment Medical History Pertinent Medical History: DM, HTN, Smoking Current History EMS secondary to abdominal pain and vomiting Reviewed History: Yes Social History Home: Single Level Current Living Status: Spouse Prior Prior Level of Function SCALE: Activities may be completed with or without assistive devices. 5-Knnzyefutc-bjjtmhq completes the activity by him/herself with no assistance from a helper. 5-Set-up or Clean-up Assistance-helper sets up or cleans up; patient completes activity. Claiborne assists only prior to or following the activity. 4-Supervision or Touching Assistance-helper provides verbal cues and/or touching/steadying and/or contact guard assistance as patient completes activity. Assistance may be provided throughout the activity or intermittently. 3-Partial/Moderate Assistance-helper does LESS THAN HALF the effort. Claiborne lifts, holds or supports trunk or limbs, but provides less than half the effort. 2-Substantial/Maximal Assistance-helper does MORE THAN HALF the effort. Cla[place]orne lifts or holds trunk or limbs and provides more than half the effort. 0-Llhwhyeie-vlgavy does ALL the effort. Patient does none of the effort to complete the activity. Or, the assistance of 2 or more helpers is required for the patient to complete the activity. If activity was not attempted, code reason: 7-Patient Refused. 9-Not Applicable-not attempted and the patient did not perform the activity before the current illness, exacerbation or injury. 10-Not Attempted due to Environmental Limitations-(lack of equipment, weather restraints, etc.). 88-Not Attempted due to Medical Conditions or Safety Concerns. Bed Mobility: 6 Transfers (B,C,W/C): 6 Gait: 6 Stairs: 6 Indoor Mobility (Ambulation): Independent Stairs: Independent Prior Devices Use: None PT Evaluation-Current Subjective Patient agrees to PT. Objective Patient Orientation: Normal For Age Attachments: IV ROM/Strength ROM Lower Extremities bilateral LE WFL Strength Lower Extremities 4/5 grossly bilateral LE Integumentary/Posture Integumentary refer to nursing notes Bowel Incontinence: No Bladder Incontinence: No Posture WFL Neuromuscular (Tone, Coordination, Reflexes) grossly intact Sensory Vision: Wears Glasses Hearing: Functional Transfers Roll Left to Right (QC): 6 Sit to Lying (QC): 6 Lying to Sitting/Side of Bed(Q: 6 Sit to Stand (QC): 6 Toilet Transfer (QC): 6 Gait Mode of Locomotion: Walk Anticipated Mode of Locomotion: Walk Walk 10 feet (QC): 6 Walk 50 ft with 2 Turns(QC): 6 Walk 150 ft (QC): 6 Distance: 300' Gait Assistive Device: None Comments/Gait Description slightly unsteady initially with self correct and improved gait with duration Balance Sitting Static: Normal Sitting Dynamic: Normal Standing Static: Normal Standing Dynamic: Normal Assessment/Needs Patient is currently at independent OF with all gross motor skills and does not require skilled therapy intervention. Rehab Potential: Fair PT Plan Treatment/Plan Treatment Plan: Discontinue PT, goals met Treatment Duration: Jan 22, 2022 Frequency: 1 time per week Estimated Hrs Per Day: .25 hour per day Patient and/or Family Agrees t: Yes Discharge Recommendations Therapy Discharge Recommendati: Home & Family Time/GCodes Time In: 1250 Time Out: 1305 Total Billed Treatment Time: 15 Total Billed Treatment 1 visit EVModC 15 min HEATHER ZAMBRANO PT Jan 22, 2022 13:44
--- NOTE | 2022-01-22 18:21 | Discharge Summary ---
Discharge Summary Hospital Course Problems/Dx: (1) Acute kidney injury Status: Acute (2) Benzodiazepine overdose Status: Acute Qualifiers: Qualified Codes: T42.4X4A - Poisoning by benzodiazepines, undetermined, initial encounter (3) Opiate overdose Status: Acute Qualifiers: Qualified Codes: T40.604A - Poisoning by unspecified narcotics, undetermined, initial encounter (4) Osteoarthritis of right knee Hospital Course Date of Admission: Jan 21, 2022 at 12:46 Admission Diagnosis : STALIN Family Physician/Provider: Harish Sims MD Date of Discharge: 01/22/22 Discharge Diagnosis: STALIN Hospital Course: Jina Boogie is a 61 year old female who presented with altered mental status and was admitted with STALIN. She was found to be very dehydrated with severe STALIN after spending all day in the sun at [facility]. She is on chronic opiates and benzodiazepines. It seems that she had an unintentional overdose of her medications due to her decreased renal function. She was given IV fluids and Narcan and she improved. She was encouraged to maintain adequate hydration. She should follow up with her PCP in about a week. She was discharged home in stable condition. Labs and Pending Lab Test: Laboratory Tests 01/21/22 21:56: Glucometer 114H 01/21/22 23:10: Glucometer 92 01/22/22 05:15: White Blood Count 8.6, Red Blood Count 3.50L, Hemoglobin 10.7L, Hematocrit 32L, Mean Corpuscular Volume 93, Mean Corpuscular Hemoglobin 31, Mean Corpuscular Hemoglobin Concent 33, Red Cell Distribution Width 14.1, Platelet Count 196, Mean Platelet Volume 11.3, Sodium Level 141, Potassium Level 4.2, Chloride Level 112H, Carbon Dioxide Level 19L, Anion Gap 10, Blood Urea Nitrogen 18, Creatinine 1.12, Estimat Glomerular Filtration Rate 57, BUN/Creatinine Ratio 16, Glucose Level 103, Calcium Level 7.9L 01/22/22 12:35: Glucometer 174H Microbiology 01/21/22 MRSA Screen - Final, Complete MRSA not isolated Home Meds Active Reported Cetirizine HCl 10 Mg Tablet 10 Mg PO DAILY PRN Diltiazem 24Hr ER (Diltiazem HCl) 240 Mg Cap.er.24h 240 Mg PO DAILY Baclofen 20 Mg Tablet 20 Mg PO TID Metformin HCl 1,000 Mg Tablet 1,000 Mg PO BID Ventolin Hfa (Albuterol Sulfate) 90 Mcg Hfa.aer.ad 2 Puff INH Q4H PRN Hydrocodone-Acetamin 7.5-325 (Hydrocodone/Acetaminophen) 7.5 Mg-325 Mg Tablet 1 Ea PO BID PRN Tramadol HCl 50 Mg Tablet 50-100 Mg PO Q6H PRN Alprazolam 1 Mg Tablet 1 Mg PO BID PRN Lisinopril-Hctz 10-12.5 mg Tab (Lisinopril/Hydrochlorothiazide) 10 Mg-12.5 Mg Tablet 1 Ea PO DAILY Atorvastatin Calcium 20 Mg Tablet 20 Mg PO HS Amitriptyline HCl 50 Mg Tablet 50 Mg PO HS Celexa (Citalopram Hydrobromide) 40 Mg Tablet 40 Mg PO HS Assessment/Pt Instructions Take medications as prescribed. Follow up with your PCP. Return with worsening confusion, weakness, or if you feel like you are getting worse. Discharge Planning: <30 minutes discharge planning Discharge Instructions Discharge Diet: No Restrictions Activity as Tolerated: Yes Consultations TeleICU Discharge Physical Examination Vital Signs Vital Signs Date Time Temp Pulse Resp B/P (MAP) Pulse Ox O2 Delivery O2 Flow Rate FiO2 01/22/22 13:55 01/22/22 13:00 77 01/22/22 12:00 9 89 Room Air 01/22/22 03:42 35.8 01/21/22 13:36 2.00 General Appearance: No Apparent Distress, WD/WN Respiratory: Lungs Clear, No Respiratory Distress Cardiovascular: Regular Rate, Rhythm, No Murmur Gastrointestinal: Normal Bowel Sounds, Soft Extremity: Normal Inspection, No Pedal Edema Skin: Normal Color, Warm/Dry Neurologic/Psychiatric: Alert, Normal Mood/Affect Allergies: Coded Allergies: morphine (Unverified Allergy, Unknown, Vomiting, 01/17/22) Discharge Summary Date of Admission Jan 21, 2022 at 12:46 Date of Discharge Jan 22, 2022 at 14:07 Discharge Date: Jan 22, 2022 Discharge Time: 14:07 Admission Diagnosis STALIN Consults/Procedures Consulations TeleiCU Discharge Diagnosis (1) Acute kidney injury Status: Acute (2) Benzodiazepine overdose Status: Acute Qualifiers: Qualified Codes: T42.4X4A - Poisoning by benzodiazepines, undetermined, initial encounter (3) Opiate overdose Status: Acute Qualifiers: Qualified Codes: T40.604A - Poisoning by unspecified narcotics, undetermined, initial encounter (4) Osteoarthritis of right knee BLANCA SPEARS MD Jan 22, 2022 18:21
== END 2022-01-22 14:07 | disposition home or self-care (01) ==
LOC: EDUNIT# 11:07 → ER 11:13 → ICU 12:46
PROVIDERS: ADMIT Family Medicine; ATTEND Internal Medicine
DX: T40.2X1A Poisoning by other opioids, accidental (unintentional), initial encounter (principal); T42.4X1A Poisoning by benzodiazepines, accidental (unintentional), initial encounter; R41.82 Altered mental status, unspecified; R11.2 Nausea with vomiting, unspecified; N17.9 Acute kidney failure, unspecified; E86.0 Dehydration; M17.11 Unilateral primary osteoarthritis, right knee; E11.9 Type 2 diabetes mellitus without complications; Z79.84 Long term (current) use of oral hypoglycemic drugs; F17.210 Nicotine dependence, cigarettes, uncomplicated; I95.9 Hypotension, unspecified; R06.89 Other abnormalities of breathing; Z88.5 Allergy status to narcotic agent
CPT/HCPCS: 51702; 71045; 80048; 80053; 80306; 81000; 82550; 82947 ×2; 85007; 85027 ×2; 87081; 93005; 93041; 96361 ×2; 97162; 99285; G0480 ×3; 36415; 80320; 80329

== ENCOUNTER 2022-01-31 08:00 | Inpatient (IN) | payer OTHER ==
--- NOTE | 2022-01-16 20:45 | HISTORY AND PHYSICAL ---
DATE OF SERVICE: ADMISSION HISTORY AND PHYSICAL DATE OF ADMISSION: Date of inpatient admission will be 01/31/2022 for right total knee arthroplasty. The patient will require regular inpatient admission due to comorbidities, need for pain management and physical therapy. HISTORY OF PRESENT ILLNESS: The patient is a 61-year-old female who has undergone multiple right knee arthroscopies in the past, but reports progressive loss of function in the right knee. She has undergone injections about every 7 months, but her pain has progressed to the point where she is having difficulty with activities of living as well as her work activities. Radiographs reveal severe medial, lateral and patellofemoral arthrosis with minimal joint space remaining primarily involving the patellofemoral compartment. Due to functional impairment and failure to improve with conservative measures, the patient elected to proceed with total knee arthroplasty. REVIEW OF SYSTEMS: No chest pain, no shortness of breath, no dysuria. PAST MEDICAL HISTORY: Diabetes, hypertension, hypercholesterolemia, bronchitis. PAST SURGICAL HISTORY: Right knee arthroscopy x4, hysterectomy, herniorrhaphy, cholecystectomy, trigger finger releases. FAMILY HISTORY: Noncontributory. PRIMARY CARE PROVIDER: Dr. Sims in [place], [place]. MEDICATIONS: Aspirin, Xanax, tramadol, hydrocodone, diltiazem, amitriptyline, Celexa, atorvastatin, baclofen, diclofenac, metformin. ALLERGIES: TYLENOL. SOCIAL HISTORY: The patient smokes cigarettes. Denies alcohol use. PHYSICAL EXAMINATION: GENERAL: The patient is well-developed, well-nourished, in no acute distress. HEENT: Normocephalic, atraumatic. Pupils are equal, round and reactive to light. Oropharynx is clear. NECK: Supple, no lymphadenopathy. LUNGS: Clear to auscultation bilaterally. HEART: Regular rate and rhythm. ABDOMEN: Soft, nontender, nondistended. EXTREMITIES: The right knee demonstrates moderate effusion. She has pain along the medial and lateral joint line. She has pain medially and laterally with Yobany's. Range of motion is 0/2/130. There is no varus valgus laxity. Negative anterior and posterior drawer. IMPRESSION: Severe right knee osteoarthritis, unresponsive to conservative measures. PLAN: Right total knee arthroplasty. The risks, benefits, options, ramifications and recovery have been discussed at length with the patient. She understands and wishes to proceed. Job ID: [id number] DocumentID: [id number] Dictated Date: 01/15/2022 09:32:03 Manager Call Date: 01/15/2022 10:12:10 Dictated By: CYRUS HUMPHRIES MD
[2022-01-31] VITALS (11 sets, daily range): BP systolic 90–135; BP diastolic 60–83
[~2022-01-31] VITALS: Ht 157.5 cm; Wt 70.7 kg
[~2022-01-31 08:00] MED LIST changes: +ALPR1TAB7 PO; +BACL20TA PO; +CEFUROXIME INJECTION 1,500 MG in NS (IVPB) 50 ML IV ONE; +CETI10TA17 PO; +DILT240C91 PO; +LISI1TAB44 PO; +METF-399 PO; +NALOXONE 0.4 MG/ML 1 ML (NARCAN) VIAL IV PRN; +ONDANSETRON 4 MG/2 ML (SDV) Z0FRAN IVP PRN; +TRM50T PO; +diphenhydrAMINE 50 MG/ML INJ (BENADRYL) IVP PRN; +fentaNYL PCA 1,000 MCG/100 ML IV SCH
[2022-01-31] MEDS: LACTATED RINGERS 1,000 ML IV PRN ×2 (08:30→09:37)
[2022-01-31] MEDS ORDERED: MIDAZOLAM 2 MG/2 ML (VERSED) VIAL ONE (08:35)
[2022-01-31] MEDS ORDERED: fentaNYL INJ 100 MCG/2 ML AMP ONE (08:47)
[2022-01-31] MEDS ORDERED: proPOfol 200 MG/20 ML (DIPRIVAN) VIAL IV ONE (08:49)
[2022-01-31] MEDS ORDERED: LIDOCAINE PF 2% 5 ML (XYLOCAINE) VIAL ONE (08:49)
[2022-01-31] MEDS ORDERED: TRANEXAMIC ACID 100 MG/ML 10 ML INJECTION ONE (08:49)
[2022-01-31] MEDS ORDERED: ONDANSETRON 4 MG/2 ML (SDV) Z0FRAN ONE (08:49)
--- NOTE | 2022-01-31 09:06 | Progress Note-Pre Operative ---
Pre-Operative Progress Note H&P Reviewed The H&P was reviewed, patient examined and no changes noted. Date Seen by Provider: Jan 31, 2022 Time Seen by Provider: 09:01 Date H&P Reviewed: Jan 31, 2022 Time H&P Reviewed: 07:11 Pre-Operative Diagnosis: right knee primary ostearthritis CYRUS HUMPHRIES MD Jan 31, 2022 09:06
--- NOTE | 2022-01-31 09:07 | Progress Note-Post Operative ---
Post-Operative Progess Note Surgeon (s)/Hydraulics Teacher (s) Surgeon CYRUS HUMPHRIES MD Hydraulics Teacher: Zach Pang Pre-Operative Diagnosis right knee primary ostearthritis Post-Operative Diagnosis right knee primary ostearthritis Procedure & Operative Findings Date of Procedure 01/31/22 Procedure Performed/Findings right total knee arthoplasty Anesthesia Type GETA Estimated Blood Loss Estimated blood loss (mL): minimal Specimens/Packing Specimens Removed none Packing: none CYRUS HUMPHRIES MD Jan 31, 2022 09:07
--- NOTE | 2022-01-31 09:10 | D/C HH Face to Face Order ---
D/C Face to Face Orders Reconcile Patient Problems Problems Reviewed?: Yes Instructions for Patient Via [email or web address], Patient Instructions/FollowUp: three weeks Physician to follow Patient: three weeks Discharge Diet for Home: Regular Diet Patient Data-Allergies,Ht & Wt Patient Allergies: Coded Allergies: morphine (Unverified Allergy, Unknown, Vomiting, 01/17/22) Home Health Need/Face to Face Date of Face to Face: Jan 31, 2022 Clinical Findings: Muscle weakness, Pain with ambulation, Unsteady gait I have seen Pt frob-ao-tcbu: Yes Discharged To: Home Diagnosis/Conditions: right total knee arthroplasty Patient is Homebound due to: Muscle weakness, Pain w/ambulation Homebound Status Due to the above stated illness, injury or surgical procedure (medical co ndition or diagnosis) and associated clinical findings, the patient is homebound because of his/her inability to leave home except with aid of a supportive device and/or person AND leaving the home requires a considerable and taxing effort or is medically contraindicated. Pt req the following assistanc: Walker Home Health Nursing Orders Home Health Services Order: Physical Therapy-Evaluate & Treat DC right knee liborio and apply steri strips 02/14/22 Home Health Infusion Therapy Line Start Date: Jan 31, 2022 Therapy Orders Therapy Orders: Physical Therapy, PT to assess for OT Therapy Specific Orders: Eval assistive deivces, Teach enviro modifications/safety, Gait training, Increase strength/endurance, Provider maintenance therapy, Restore ROM Certify Stmt I certify that this patient is under my care and that I, a nurse practitioner or a physician; a mobile sales assistant working with me, had a face to face encounter that - meets the physician face to face encounter requirements with this patient as dated. CYRUS HUMPHRIES MD Jan 31, 2022 09:10
[2022-01-31] MEDS ORDERED: HYDROmorphone 2 MG/ML VIAL (DILAUDID) ONE (09:38)
[2022-01-31] MEDS ORDERED: INTRA-ARTICULAR IU ONE ×5 (09:45)
[2022-01-31] MEDS ORDERED: ROPIVACAINE 5MG/ML 30ML VIAL ONE (10:38)
[2022-01-31] MEDS ORDERED: SEVOFLURANE (ULTANE) 15 ML INHAL SOLN ONE (10:42)
[2022-01-31] MEDS ORDERED: KETOROLAC 30 MG/ML VIAL ONE (10:42)
--- NOTE | 2022-01-31 11:33 | Progress Note ---
Standard Progress Note Progress Notes/Assess & Plan Date Seen by a Provider: Jan 31, 2022 Time Seen by a Provider: 11:24 Progress/Assessment & Plan post op check no complaints denies paresthesias radiographs--HW well positioned without fracture RLE--2 plus DP pulse with brisk cap refill intact DF and PF of toes and ankle sensation intact to light touch throughout s/p RTKA mobilize as able CYRUS HUMPHRIES MD Jan 31, 2022 11:33
[2022-01-31] MEDS ORDERED: HYDROmorphone 2 MG/ML VIAL (DILAUDID) IV ONE (11:45)
[2022-01-31] MEDS ORDERED: ONDANSETRON 4 MG/2 ML (SDV) Z0FRAN IVP PRN (11:45)
--- NOTE | 2022-01-31 11:52 | Diagnostic Imaging Report ---
EXAMINATION: Right knee radiographs, 2 views. COMPARISON: None. HISTORY: 61-year-old female, status post right total knee arthroplasty. FINDINGS: There is a right total knee prosthesis. The hardware is intact. There is no periprosthetic lucency. There is intra-articular and soft tissue gas likely reflecting recent postoperative state of the patient. There are anterior skin liborio. There is no identified acute fracture. IMPRESSION: 1. Right total knee prosthesis noted without identified complication. Dictated by: Dictated on workstation # [id number]
[2022-01-31] MEDS: NS IV 1000 ML 1,000 ML IV SCH (12:45)
[2022-01-31] MEDS: SENNA W/DOCUSATE (SENOKOT S) TABLET PO SCH ×2 (12:57→20:21)
[2022-01-31] MEDS ORDERED: CETIRIZINE HCL (ZYRTEC) 10 MG TAB PO PRN (13:30)
[2022-01-31] MEDS ORDERED: RT-ALBUTEROL SULF 2.5 MG/3 ML PRE-MIX VIAL INH PRN (13:30)
[2022-01-31] MEDS ORDERED: ALPRAZolam 1 MG (XANAX) TAB PO PRN (13:30)
[2022-01-31] MEDS ORDERED: LORATADINE (CLARITIN) 10 MG TAB PO PRN (14:00)
--- NOTE | 2022-01-31 14:12 | Consultation - Hospitalist ---
HPI History of Present Illness: HPI/Chief Complaint Patient is a 61-year-old female with past medical history of qqz-jhdgdsb-ostjphsjl diabetes type 2, hypertension, osteoarthritis who was admitted to Dr. Mims for TKA. I am seeing her postoperatively for medical management. She denies any complaints other than knee pain at this time. She does have her ADMIN DIR in place and I instructed her on use. She has no other concerns or questions for me. Source: patient Date Seen 01/31/22 Attending Physician Harish Sims MD PCP Admitting Physician: Jaime Mims MD Attending Physician: Jaime Mims MD Referring Physician Date of Admission Jan 31, 2022 at 08:00 Home Medications & Allergies Home Medications Reviewed patient Home Medication Reconciliation performed by pharmacy medication reconciliations field technician and/or nursing. Patients Allergies have been reviewed. Allergies Allergies Coded Allergies morphine (Unverified Allergy, Unknown, Vomiting, 01/17/22) Past Wvtvctq-Adaaes-Dteqzu Hx Patient Social History Marrital Status: Employed/Student: employed Tobacco Use?: Yes Tobacco type used: Cigarettes Smoking Status: Current Everyday Smoker Use of E-Cig and/or Vaping dev: No Substance use?: No Alcohol Use?: No Pt feels they are or have been: No Immunizations Up To Date Date of Influenza Vaccine: Mar 28, 2021 First/Initial COVID19 Vaccinat: 2019 Second COVID19 Vaccination Asad: 2020 Seasonal Allergies Seasonal Allergies: Yes Current Status status: No status: No Advance Directives: No Primary Language: Arabic Preferred Spoken Language: Arabic Is interpretation needed?: No Sensory deficits: Vision impairment Implanted or Applied Medical D: None Past Medical History Surgeries: Gallbladder, Hysterectomy, Tubal Ligation Emphysema Currently Using CPAP: No Currently Using BIPAP: No High Cholesterol, Hypertension 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 History: Hysterectomy, Tubal Ligation Gastroesophageal Reflux Arthritis Diabetes, Non-Insulin dep Anxiety, Depression Blood Disorders: No Review of Systems Constitutional: No chills, No fever EENTM: no symptoms reported Respiratory: no symptoms reported Cardiovascular: no symptoms reported Gastrointestinal: no symptoms reported Genitourinary: no symptoms reported Musculoskeletal: joint pain Skin: no symptoms reported Psychiatric/Neurological: No Symptoms Reported Physical Exam Physical Exam Vital Signs Vital Signs - First Documented 01/31/22 08:41 Temp 36.0 Pulse 79 Resp 18 B/P (MAP) 110/77 (88) Pulse Ox 96 O2 Delivery Room Air Capillary Refill : Less Than 3 Seconds Height, Weight, BMI Height: '" Weight: lbs. oz. kg; 28.50 BMI Method: General Appearance: No Apparent Distress, WD/WN HEENT: PERRL/EOMI, Moist Mucous Membranes; No Scleral Icterus (L), No Scleral Icterus (R) Neck: Normal Inspection, Supple Respiratory: Lungs Clear, No Accessory Muscle Use, No Respiratory Distress Cardiovascular: Regular Rate, Rhythm, No Murmur Gastrointestinal: Normal Bowel Sounds, Non Tender, Soft Neurologic/Psychiatric: Alert, Oriented x3, Normal Mood/Affect Results Results/Procedures Labs Patient resulted labs reviewed. Imaging: Reviewed Imaging Report Imaging [facility] [place] NAME: ANGELA CHANEY [facility] REC#: [id number] PT STATUS: ADM IN : 1960 PHYSICIAN: DAYANA OSORIO ADMIT DATE: 01/31/22/SURG Signed Date of Exam:01/31/22 KNEE, RIGHT, 2 VIEWS EXAMINATION: Right knee radiographs, 2 views. COMPARISON: None. HISTORY: 61-year-old female, status post right total knee arthroplasty. FINDINGS: There is a right total knee prosthesis. The hardware is intact. There is no periprosthetic lucency. There is intra-articular and soft tissue gas likely reflecting recent postoperative state of the patient. There are anterior skin liborio. There is no identified acute fracture. IMPRESSION: 1. Right total knee prosthesis noted without identified complication. Dictated by: Dictated on workstation # [id number] Dict: 01/31/22 1138 Trans: 01/31/22 1152 [facility] [id number] Interpreted by: KIMMY HINOJOSA MD Electronically signed by: KIMMY HINOJOSA MD 01/31/22 1152 Assessment/Plan Assessment and Plan Assess & Plan/Chief Complaint Osteoarthitis s/p TKA Pain control via ADMIN DIR Bowel regimen PT/OT Management per primary HTN Resume home meds NIDDMII HLD Hold home metformin for now Continue home statin DVT ppx: Lovenox Diagnosis/Problems Diagnosis/Problems (1) Osteoarthritis of right knee Status: Acute Qualifiers: Osteoarthritis type: primary Qualified Codes: M17.11 - Unilateral primary osteoarthritis, right knee (2) Hypertension Status: Chronic Qualifiers: Hypertension type: primary hypertension Qualified Codes: I10 - Essential (primary) hypertension (3) Non-insulin dependent type 2 diabetes mellitus Status: Chronic (4) Hyperlipidemia Status: Chronic Qualifiers: Hyperlipidemia type: mixed hyperlipidemia Qualified Codes: E78.2 - Mixed hyperlipidemia (5) BMI 28.0-28.9,adult Status: Chronic KIM CARTER MD Jan 31, 2022 14:12
--- NOTE | 2022-01-31 14:43 | Physical Therapy Evaluation ---
PT Evaluation-General Medical Diagnosis Admission Date Jan 31, 2022 at 08:00 Medical Diagnosis: right TKA Onset Date: Jan 31, 2022 Therapy Diagnosis Therapy Diagnosis: impaired mobility, ROM Weight Bear Status Right Lower Extremity: Right Weight Bearing/Tolerated Referral Physician: Bird Reason for Referral: Evaluation/Treatment Medical History Pertinent Medical History: DM, HTN, Smoking Additional Medical History PAST MEDICAL HISTORY: Diabetes, hypertension, hypercholesterolemia, bronchitis. PAST SURGICAL HISTORY: Right knee arthroscopy x4, hysterectomy, herniorrhaphy, cholecystectomy, trigger finger releases. Reviewed History: Yes Social History Home: Single Level Current Living Status: Spouse Entry Into Home: Stairs With Railing PT Steps Into Home: 3 Prior Prior Level of Function SCALE: Activities may be completed with or without assistive devices. 1-Wneininpxr-tuzdwdb completes the activity by him/herself with no assistance from a helper. 5-Set-up or Clean-up Assistance-helper sets up or cleans up; patient completes activity. Madison assists only prior to or following the activity. 4-Supervision or Touching Assistance-helper provides verbal cues and/or touching/steadying and/or contact guard assistance as patient completes activity. Assistance may be provided throughout the activity or intermittently. 3-Partial/Moderate Assistance-helper does LESS THAN HALF the effort. Madison lifts, holds or supports trunk or limbs, but provides less than half the effort. 2-Substantial/Maximal Assistance-helper does MORE THAN HALF the effort. [place] lifts or holds trunk or limbs and provides more than half the effort. 6-Eydthhwgb-slhxbg does ALL the effort. Patient does none of the effort to complete the activity. Or, the assistance of 2 or more helpers is required for the patient to complete the activity. If activity was not attempted, code reason: 7-Patient Refused. 9-Not Applicable-not attempted and the patient did not perform the activity before the current illness, exacerbation or injury. 10-Not Attempted due to Environmental Limitations-(lack of equipment, weather restraints, etc.). 88-Not Attempted due to Medical Conditions or Safety Concerns. Bed Mobility: 6 Transfers (B,C,W/C): 6 Gait: 6 Stairs: 6 Indoor Mobility (Ambulation): Independent Stairs: Independent PT Evaluation-Current Subjective Patient in bed pre tx, agrees to PT, has no complaints of pain. Pt/Family Goals to be independent at home Objective Patient Orientation: Person, Place, Situation Attachments: Oxygen, IV ROM/Strength ROM Lower Extremities right knee flexion 75 degrees, extension +15 degrees Sensory Vision: Wears Glasses Hearing: Functional Sensation Right Lower Extremit: Intact Sensation Left Lower Extremity: Intact Transfers Roll Left to Right (QC): 6 Sit to Lying (QC): 4 Lying to Sitting/Side of Bed(Q: 4 Sit to Stand (QC): 4 Chair/Thh-cm-Xikwn Xfer(QC): 4 Gait Does the Patient Walk?: Yes Mode of Locomotion: Walk Anticipated Mode of Locomotion: Walk Walk 10 feet (QC): 4 Distance: 20' Gait Assistive Device: FWW Comments/Gait Description CGA, slightly flexed right knee, decreased weight bearing on right leg Balance Sitting Static: Normal Sitting Dynamic: Normal Standing Static: Good Standing Dynamic: Good Treatment RLE total knee protocol x10 (AP, HS, QS, SAQ, SLR) Assessment/Needs Patient in bed post tx with nurse call, phone, tray, all needs met. Patient has impaired mobility, strength, endurance, ROM. Rehab Potential: Fair PT Custodial Goals Legal Secretary Receptionist Goals PT Custodial Goals Time Frame: Feb 07, 2022 Roll Left & Right (QC): 6 Sit to Lying (QC): 6 Lying-Sitting on Side/Bed(QC): 6 Sit to Stand (QC): 6 Chair/Ida-gw-Oajai Xfer(QC): 6 Walk 10 feet (QC): 6 Walk 50ft with 2 Turns (QC): 6 Walk 150 ft (QC): 6 PT Plan Problem List Problem List: Activity Tolerance, Functional Strength, Safety, Balance, Gait, Transfer, Bed Mobility, ROM Treatment/Plan Treatment Plan: Continue Plan of Care Treatment Plan: Bed Mobility, Education, Functional Activity Karen, Functional Strength, Gait, Safety, Therapeutic Exercise, Transfers Treatment Duration: Feb 07, 2022 Frequency: 11 times per week Estimated Hrs Per Day: .25 hour per day Patient and/or Family Agrees t: Yes Safety Risks/Education Patient Education: Gait Training, Transfer Techniques, Correct Positioning, Safety Issues Teaching Recipient: Patient Teaching Methods: Demonstration, Discussion Response to Teaching: Reinforcement Needed Discharge Recommendations Plan Patient will perform bed mobility and transfer training, balance and endurance training, functional strengthening, stair training, gait training, and education, to improve functional mobility and independence at home. Therapy Discharge Recommendati: Home & Family, Post Acute PT Time/GCodes Time In: 1402 Time Out: 1415 Total Billed Treatment Time: 13 Total Billed Treatment 1 visit EVL 13' ADITYA RODRIGUEZ PT Jan 31, 2022 14:43
--- NOTE | 2022-01-31 16:54 | OPERATIVE REPORT ---
DATE OF SERVICE: 01/31/2022 PREOPERATIVE DIAGNOSIS: Right knee primary osteoarthritis. POSTOPERATIVE DIAGNOSIS: Right knee primary osteoarthritis. PROCEDURE PERFORMED: Right total knee arthroplasty. SURGEON: Jaime Humphries MD. FOOD SAFETY FIELD SPECIALIST: Zach Pang, who assisted throughout the procedure and closed the incision. ANESTHESIA: General endotracheal by Xin Bernal CRNA. TOURNIQUET TIME: Approximately 70 minutes at 300 mmHg. ESTIMATED BLOOD LOSS: Minimal. DRAINS: None. COMPLICATIONS: None. POSTOPERATIVE PLAN: Routine total knee arthroplasty protocol. The patient was transferred to the recovery room awake and stable condition. MATERIALS: Microport cemented size 3 femur, cemented size 3 tibia with a 10 mm insert and cemented size 29 patella. STATEMENT OF MEDICAL NECESSITY: The patient is a 61-year-old female with longstanding progressive right knee pain. The radiographs revealed severe medial and patellofemoral arthrosis. She tried rest, activity modifications, and anti-inflammatories without relief. In addition, she had hip pain with the hip flexion deformity. Due to functional impairment and failure to improve with conservative measures, the patient elected to proceed with surgical intervention. DESCRIPTION OF PROCEDURE: After the risks and benefits of the procedure were discussed and questions were answered, informed consent was signed and placed on the chart, the operative site was confirmed in the preoperative holding area initialed by the surgeon. The patient was then transferred to the operating room. After adequate levels of general endotracheal anesthetic were obtained, a timeout was called, confirming the operative site. The right lower extremity was prepped and draped in the usual sterile fashion with the leg elevated and the knee flexed and tourniquet was inflated to 300 mmHg. Standard anterior approach was utilized. Hemostasis was obtained with cautery. A medial parapatellar arthrotomy was performed leaving 1 cm cuff on the patella for later reattachment. A portion of the fat pad was resected. A subperiosteal release was carefully performed on the proximal medial tibia being careful to stay on the bony surface. The ACL was resected. Intramedullary guide was passed into the femoral canal. The distal cutting block was placed. Distal cut was made, the femur sized to a size 3 and 3 cutting block was placed parallel to the epicondylar axis and cuts were made from posterior to anterior. Subperiosteal release was then carefully performed on the posterior distal femur, being careful to stay on the bony surface. The intramedullary guide was then passed into the tibia. The tibial cutting block was placed. The drop yessenia transected the intermalleolar axis and the cut was made. The 3 baseplate was placed. The drop yessenia transected the intermalleolar axis. This was prepared with the drill and keel punch. The femoral trial was placed and the trochlear cut was made. A 10 mm insert was placed. The patella was prepared by resecting 10 mm off the undersurface. The peg guide was placed and the peg holes were drilled. The 29 trial button was placed. The knee was taken through a range of motion. Full extension was obtained, 120 degrees of flexion with gravity was easily obtained. The patella tracked well. There was no anterior/posterior or medial/lateral laxity in flexion or extension. The trials were removed. The joint was copiously irrigated with pulse lavage. The periarticular block was placed in the posterior capsule, medial and lateral retinaculum, extensor mechanism, and subcutaneous tissues. The joint was further irrigated. The bone ends were irrigated and dried. The tibial baseplate was cemented into position. Excessive cement was removed, the superior surface was irrigated and dried and the polyethylene insert was placed. The distal femur was irrigated and dried and the femoral prosthesis was cemented into position. Excessive cement was removed. The knee was brought out in full extension until cement had cured. The undersurface of the patella was irrigated and dried. The patellar button was cemented into position. Once the cement had cured and excess of cement had been removed, the knee was taken through range of motion. Full extension was obtained, 120 degrees of flexion with gravity was easily obtained. The patella tracked well. There was no anterior/posterior or medial/lateral laxity in flexion or extension. The joint was further irrigated with pulse lavage. The arthrotomy was closed with #2 Tevdek in defbdk-oy-rbpmc interrupted fashion. Knee was flexed. Patella tracked well. There was no undue tension noted at the repair site. The soft tissues were irrigated with pulse lavage. A total of 6 liters through was used throughout the procedure. A 0 Vicryl was used for the deep subcutaneous layer, 2-0 Vicryl for the superficial subcutaneous layer, and liborio were used on the skin. A soft dressing was applied. The tourniquet was deflated. The patient was transferred to the recovery room awake and in stable condition. Yonathan ID: [id number] DocumentID: [id number] Dictated Date: 01/31/2022 10:49:33 Pediatric Orthodontist Date: 01/31/2022 16:53:10 Dictated By: JAIME HUMPHRIES MD
[2022-01-31] MEDS: CEFUROXIME INJECTION 750 MG in NS (IVPB) 50 ML IV SCH (17:44)
[2022-01-31] MEDS: AMITRIPTYLINE 25 MG (ELAVIL) TAB PO SCH (20:21)
[2022-01-31] MEDS: BACLOFEN 10 MG (LIORESAL) TAB PO SCH (20:21)
[2022-01-31] MEDS ORDERED: NON-FORMULARY MEDICATION 1 EA EA (Amitriptyline HCl 50 MG) PO SCH (21:00)
[2022-01-31] MEDS ORDERED: NON-FORMULARY MEDICATION 1 EA EA (Citalopram Hydrobromide (Celexa) 40 MG) PO SCH (21:00)
[2022-01-31] MEDS ORDERED: NON-FORMULARY MEDICATION 1 EA EA (Baclofen 20 MG) PO SCH (21:00)
[2022-02-01] MEDS: CEFUROXIME INJECTION 750 MG in NS (IVPB) 50 ML IV SCH (00:44)
[2022-02-01] MEDS: NS IV 1000 ML 1,000 ML IV SCH ×2 (00:44→08:17)
[2022-02-01 00:47] VITALS: BP 143/84
[2022-02-01] MEDS: oxyCODONE/APAP 5/325MG (PERCOCET 5) TABLET PO PRN ×8 (00:49→21:06)
[2022-02-01 03:56] VITALS: BP 165/96
[2022-02-01 05:25] LABS: HEMOGLOBIN 10.1 g/dL (11.5-16.0)
[2022-02-01] MEDS ORDERED: MULTIVIT W/MINERALS TAB (THERAGRAN M) PO SCH (07:00)
[2022-02-01 07:51] VITALS: BP 171/91
--- NOTE | 2022-02-01 07:55 | Progress Note ---
Standard Progress Note Progress Notes/Assess & Plan Date Seen by a Provider: Feb 01, 2022 Time Seen by a Provider: 07:54 Progress/Assessment & Plan post op check no complaints denies paresthesias radiographs--HW well positioned without fracture RLE--2 plus DP pulse with brisk cap refill intact DF and PF of toes and ankle sensation intact to light touch throughout s/p RTKA mobilize as able Final Diagnosis no complaints Vital Signs Date Time Temp Pulse Resp B/P (MAP) Pulse Ox O2 Delivery O2 Flow Rate FiO2 02/01/22 07:51 36.7 92 18 171/91 (117) 93 Room Air 02/01/22 03:56 37.0 96 20 165/96 (119) 90 Room Air 02/01/22 00:47 36.9 82 20 143/84 (103) 91 Room Air 01/31/22 20:43 Room Air 01/31/22 19:09 36.5 75 18 109/71 (84) 94 Room Air 01/31/22 16:00 Room Air 01/31/22 15:59 36.6 93 20 122/75 (91) 95 Room Air 01/31/22 12:12 36.5 98 16 117/76 (90) 94 Nasal Cannula 3.00 01/31/22 11:45 36.9 20 90/61 (71) 94 Nasal Cannula 3.00 01/31/22 11:45 Nasal Cannula 3.00 01/31/22 11:30 20 90/60 (70) 92 OxyMask 3.00 01/31/22 11:30 OxyMask 6.00 01/31/22 11:20 20 117/61 (79) 93 OxyMask 3.00 01/31/22 11:15 OxyMask 6.00 01/31/22 11:10 20 126/72 (90) 95 OxyMask 6.00 01/31/22 11:00 OxyMask 6.00 01/31/22 11:00 20 135/83 (100) 96 OxyMask 6.00 01/31/22 10:50 20 125/74 (91) 96 OxyMask 6.00 01/31/22 10:46 36.9 20 117/69 (85) 96 OxyMask 6.00 01/31/22 10:46 OxyMask 6.00 01/31/22 08:47 96 Room Air 01/31/22 08:41 36.0 79 18 110/77 (88) 96 Room Air I & O 02/01/22 07:00 Intake Total 2860 ml Output Total 1000 ml Balance 1860 ml Laboratory Tests Test 02/01/22 05:15 Range/Units Hemoglobin 10.1 L 11.5-16.0 g/dL Hematocrit 31 L 35-52 % RLE--dressing intact no calf tenderness. Neg Lilo's s/p RTKA PT/OT CYRUS HUMPHRIES MD Feb 01, 2022 07:54
[2022-02-01] MEDS: ENOXAPARIN INJECTION 30 MG/0.3 ML SYR SC SCH ×2 (08:16→19:16)
[2022-02-01] MEDS: SENNA W/DOCUSATE (SENOKOT S) TABLET PO SCH ×2 (08:16→19:16)
[2022-02-01] MEDS: BACLOFEN 10 MG (LIORESAL) TAB PO SCH ×3 (08:17→19:16)
[2022-02-01] MEDS: lisINopril 10 MG (PRINIVIL) TABLET PO SCH (08:17)
[2022-02-01] MEDS: ASPIRIN E.C. 81 MG (ECOTRIN) TAB PO SCH (08:17)
--- NOTE | 2022-02-01 09:47 | Physical Therapy Daily Note ---
PT Daily Note-Current Subjective Patient agrees to PT. Pain Numeric Pain Scale: 5-Moderate Pain Location: Right Location Body Site: Knee Pain Description: Acute Comment: BUSINESS ECONOMIST and pain pills issued Mental Status Patient Orientation: Normal For Age Attachments: Polar Pack, IV Transfers SCALE: Activities may be completed with or without assistive devices. 1-Knzxyljchw-tbfamth completes the activity by him/herself with no assistance from a helper. 5-Set-up or Clean-up Assistance-helper sets up or cleans up; patient completes activity. [place] assists only prior to or following the activity. 4-Supervision or Touching Assistance-helper provides verbal cues and/or touching/steadying and/or contact guard assistance as patient completes activity. Assistance may be provided throughout the activity or intermittently. 3-Partial/Moderate Assistance-helper does LESS THAN HALF the effort. [place] lifts, holds or supports trunk or limbs, but provides less than half the effort. 2-Substantial/Maximal Assistance-helper does MORE THAN HALF the effort. [place] lifts or holds trunk or limbs and provides more than half the effort. 6-Ehazauomn-jvwnnc does ALL the effort. Patient does none of the effort to complete the activity. Or, the assistance of 2 or more helpers is required for the patient to complete the activity. If activity was not attempted, code reason: 7-Patient Refused. 9-Not Applicable-not attempted and the patient did not perform the activity before the current illness, exacerbation or injury. 10-Not Attempted due to Environmental Limitations-(lack of equipment, weather restraints, etc.). 88-Not Attempted due to Medical Conditions or Safety Concerns. Lying to Sitting/Side of Bed(Q: 4 Sit to Stand (QC): 4 Chair/Swb-yx-Nhlxt Xfer(QC): 4 Weight Bearing Right Lower Extremity: Right Weight Bearing/Tolerated Gait Training Distance: 250' Walk 10 feet (QC): 4 Walk 50 ft with 2 Turns(QC): 4 Walk 150 ft (QC): 4 Gait Assistive Device: FWW slow, reciprocal pattern/slightly antalgic Exercises Supine Ex: Ankle pumps, Quad Set, Heel Slides, Straight leg raise Supine Reps: 15 Seated Therapy Exercises: Long arc quads Seated Reps: 15 Assessment Patient improving with treatment plan. Patient is lacking ~5 degrees right knee and hip extension. Patient up in recliner with needs met. PT Game Breeding Farm Manager Goals Halfway Goals PT Game Breeding Farm Manager Goals Time Frame: Feb 07, 2022 Roll Left & Right (QC): 6 Sit to Lying (QC): 6 Lying-Sitting on Side/Bed(QC): 6 Sit to Stand (QC): 6 Chair/Qdm-vn-Pyyyb Xfer(QC): 6 Walk 10 feet (QC): 6 Walk 50ft with 2 Turns (QC): 6 Walk 150 ft (QC): 6 PT Plan Treatment/Plan Treatment Plan: Continue Plan of Care Treatment Plan: Bed Mobility, Education, Functional Activity Karen, Functional Strength, Gait, Safety, Therapeutic Exercise, Transfers Treatment Duration: Feb 07, 2022 Frequency: 11 times per week Estimated Hrs Per Day: .25 hour per day Patient and/or Family Agrees t: Yes Time/GCodes Time In: 740 Time Out: 804 Total Billed Treatment Time: 24 Total Billed Treatment 1 visit EX 15 min GT 9 min HEATHER ZAMBRANO PT Feb 01, 2022 09:47
--- NOTE | 2022-02-01 10:48 | Anesthesia-General Post-Op ---
General Patient Condition Mental Status/LOC: Same as Preop Cardiovascular: Satisfactory Nausea/Vomiting: Absent Respiratory: Satisfactory Pain: Controlled Complications: Absent Post Op Complications Complications None Follow Up Care/Instructions Patient Instructions None needed. Anesthesia/Patient Condition Patient Condition Patient is doing well, no complaints, stable vital signs, no apparent adverse anesthesia problems. No complications reported per nursing. RYNE ALVAREZ CRNA Feb 01, 2022 10:48
[2022-02-01 11:12] VITALS: BP 159/90
--- NOTE | 2022-02-01 14:30 | Physical Therapy Daily Note ---
PT Daily Note-Current Subjective Patient agrees to PT. Pain medication issued prior to session. Pain Numeric Pain Scale: 8 Location: Right Location Body Site: Knee Pain Description: Acute Mental Status Patient Orientation: Normal For Age Attachments: Polar Pack, IV Transfers SCALE: Activities may be completed with or without assistive devices. 9-Pugtafvysn-wgwwbki completes the activity by him/herself with no assistance from a helper. 5-Set-up or Clean-up Assistance-helper sets up or cleans up; patient completes activity. [place] assists only prior to or following the activity. 4-Supervision or Touching Assistance-helper provides verbal cues and/or touching/steadying and/or contact guard assistance as patient completes activity. Assistance may be provided throughout the activity or intermittently. 3-Partial/Moderate Assistance-helper does LESS THAN HALF the effort. [place] lifts, holds or supports trunk or limbs, but provides less than half the effort. 2-Substantial/Maximal Assistance-helper does MORE THAN HALF the effort. [place] lifts or holds trunk or limbs and provides more than half the effort. 3-Vrewwgobd-jvlwnc does ALL the effort. Patient does none of the effort to complete the activity. Or, the assistance of 2 or more helpers is required for the patient to complete the activity. If activity was not attempted, code reason: 7-Patient Refused. 9-Not Applicable-not attempted and the patient did not perform the activity before the current illness, exacerbation or injury. 10-Not Attempted due to Environmental Limitations-(lack of equipment, weather restraints, etc.). 88-Not Attempted due to Medical Conditions or Safety Concerns. Sit to Lying (QC): 6 Lying to Sitting/Side of Bed(Q: 6 Sit to Stand (QC): 6 Toilet Transfer (QC): 6 Weight Bearing Right Lower Extremity: Right Weight Bearing/Tolerated Gait Training Distance: 250' Walk 10 feet (QC): 6 Walk 50 ft with 2 Turns(QC): 6 Walk 150 ft (QC): 6 Gait Assistive Device: FWW steady, reciprocal pattern with standing "runners" stretch to improve right knee and hip extension Exercises Supine Ex: Ankle pumps, Quad Set, Heel Slides, Straight leg raise Supine Reps: 12 Seated Therapy Exercises: Long arc quads Seated Reps: 12 Assessment Current Status: Excellent Progress Patient improving with treatment plan and will dismiss to home tomorrow after PT. PT Longterm Goals Musical Instrument Maker Or Repairer Goals PT Musical Instrument Maker Or Repairer Goals Time Frame: Feb 07, 2022 Roll Left & Right (QC): 6 Sit to Lying (QC): 6 Lying-Sitting on Side/Bed(QC): 6 Sit to Stand (QC): 6 Chair/Fyq-gx-Jqswl Xfer(QC): 6 Walk 10 feet (QC): 6 Walk 50ft with 2 Turns (QC): 6 Walk 150 ft (QC): 6 PT Plan Treatment/Plan Treatment Plan: Continue Plan of Care Treatment Plan: Bed Mobility, Education, Functional Activity Karen, Functional Strength, Gait, Safety, Therapeutic Exercise, Transfers Treatment Duration: Feb 07, 2022 Frequency: 11 times per week Estimated Hrs Per Day: .25 hour per day Patient and/or Family Agrees t: Yes Time/GCodes Time In: 1340 Time Out: 1355 Total Billed Treatment Time: 15 Total Billed Treatment 1 visit FA 15 min HEATHER ZAMBRANO PT Feb 01, 2022 14:30
[2022-02-01 15:57] VITALS: BP 130/81
[2022-02-01] MEDS: AMITRIPTYLINE 25 MG (ELAVIL) TAB PO SCH (19:15)
[2022-02-01 19:31] VITALS: BP 155/91
[2022-02-02] VITALS: BP 131/73
[2022-02-02] MEDS: oxyCODONE/APAP 5/325MG (PERCOCET 5) TABLET PO PRN ×3 (00:06→07:21)
--- NOTE | 2022-02-02 02:03 | DISCHARGE SUMMARY ---
DATE OF SERVICE: DIAGNOSES: 1. Right knee primary osteoarthritis. 2. Diabetes. 3. Hypertension. 4. Bronchitis. 5. Hypercholesterolemia. HISTORY: The patient is a 61-year-old female who was admitted the day of right total knee arthroplasty. She underwent this without complications. Postoperatively, she did well. At the time of discharge, her wound was clean and dry. She had no calf tenderness and negative Homans sign. CONDITION AT DISCHARGE: Good. DISCHARGE DIET: Regular. FOLLOWUP: Followup is in three weeks. DISCHARGE MEDICATIONS: Home medications, Percocet as needed for pain and one aspirin per day for 30 days. ACTIVITIES: Weightbearing as tolerated with assistive devices as needed. DIET: Regular. FOLLOWUP: Followup is in three weeks. Job ID: [id number] DocumentID: [id number] Dictated Date: 02/01/2022 07:57:42 Shake Loader Date: 02/02/2022 02:02:57 Dictated By: CYRUS HUMPHRIES MD
[2022-02-02] MEDS: NS IV 1000 ML 1,000 ML IV SCH (04:12)
[2022-02-02 04:22] VITALS: BP 135/80
[2022-02-02 05:46] LABS: HEMOGLOBIN 10.2 g/dL (11.5-16.0)
--- NOTE | 2022-02-02 07:07 | Progress Note ---
Standard Progress Note Progress Notes/Assess & Plan Date Seen by a Provider: Feb 02, 2022 Time Seen by a Provider: 07:06 Progress/Assessment & Plan post op check no complaints denies paresthesias radiographs--HW well positioned without fracture RLE--2 plus DP pulse with brisk cap refill intact DF and PF of toes and ankle sensation intact to light touch throughout s/p RTKA mobilize as able Final Diagnosis no complaints Vital Signs Date Time Temp Pulse Resp B/P (MAP) Pulse Ox O2 Delivery O2 Flow Rate FiO2 02/02/22 06:02 16 02/02/22 04:22 36.4 87 16 135/80 (98) 95 Room Air 02/02/22 00:00 37.1 83 18 131/73 (92) 97 Room Air 02/01/22 19:31 37.0 88 18 155/91 (112) 98 Room Air 02/01/22 19:30 Room Air 02/01/22 15:57 36.3 81 18 130/81 (97) 96 Room Air 02/01/22 11:12 36.4 87 18 159/90 (113) 96 Room Air 02/01/22 08:00 Room Air 02/01/22 07:51 36.7 92 18 171/91 (117) 93 Room Air I & O 02/02/22 06:59 Intake Total 3980 ml Output Total 3650 ml Balance 330 ml Laboratory Tests Test 02/02/22 05:15 Range/Units Hemoglobin 10.2 L 11.5-16.0 g/dL Hematocrit 30 L 35-52 % RLE--incision clean and dry. No calf tenderness. Neg Lilo's s/p RTKA doing well DC after PT today CYRUS HUMPHRIES MD Feb 02, 2022 07:07
[2022-02-02] MEDS: ENOXAPARIN INJECTION 30 MG/0.3 ML SYR SC SCH (07:21)
[2022-02-02 07:47] VITALS: BP 135/85
[2022-02-02] MEDS: BACLOFEN 10 MG (LIORESAL) TAB PO SCH (08:14)
[2022-02-02] MEDS: SENNA W/DOCUSATE (SENOKOT S) TABLET PO SCH (08:14)
[2022-02-02] MEDS: lisINopril 10 MG (PRINIVIL) TABLET PO SCH (08:14)
[2022-02-02] MEDS: ASPIRIN E.C. 81 MG (ECOTRIN) TAB PO SCH (08:15)
[2022-02-02 09:30] VITALS: BP 135/85
--- NOTE | 2022-02-02 10:00 | Physical Therapy Daily Note ---
PT Daily Note-Current Subjective Patient agrees to PT. Pain meds were issued prior to PT arrival. Pain Numeric Pain Scale: 5-Moderate Pain Location: Right Location Body Site: Knee Pain Description: Acute Mental Status Patient Orientation: Normal For Age Transfers SCALE: Activities may be completed with or without assistive devices. 0-Giyofbqlwd-xcdakbb completes the activity by him/herself with no assistance from a helper. 5-Set-up or Clean-up Assistance-helper sets up or cleans up; patient completes activity. [place] assists only prior to or following the activity. 4-Supervision or Touching Assistance-helper provides verbal cues and/or touching/steadying and/or contact guard assistance as patient completes activity. Assistance may be provided throughout the activity or intermittently. 3-Partial/Moderate Assistance-helper does LESS THAN HALF the effort. [place] lifts, holds or supports trunk or limbs, but provides less than half the effort. 2-Substantial/Maximal Assistance-helper does MORE THAN HALF the effort. [place] lifts or holds trunk or limbs and provides more than half the effort. 4-Rvathyfjs-qjnsgl does ALL the effort. Patient does none of the effort to complete the activity. Or, the assistance of 2 or more helpers is required for the patient to complete the activity. If activity was not attempted, code reason: 7-Patient Refused. 9-Not Applicable-not attempted and the patient did not perform the activity before the current illness, exacerbation or injury. 10-Not Attempted due to Environmental Limitations-(lack of equipment, weather restraints, etc.). 88-Not Attempted due to Medical Conditions or Safety Concerns. Lying to Sitting/Side of Bed(Q: 6 Sit to Stand (QC): 6 Chair/Oan-ta-Mucak Xfer(QC): 6 Weight Bearing Right Lower Extremity: Right Weight Bearing/Tolerated Gait Training Distance: 200'x 2 Walk 10 feet (QC): 6 Walk 50 ft with 2 Turns(QC): 6 Walk 150 ft (QC): 6 Gait Assistive Device: FWW steady, reciprocal pattern Stair Training Stair Training: Handrails/: 1 handrail, uses walker #of Steps: 4 1 Step (curb) (QC): 4 4 Steps (QC): 4 Stairs: Pattern: Step to Exercises Supine Ex: Ankle pumps, Quad Set, Heel Slides, Straight leg raise Supine Reps: 12 Seated Therapy Exercises: Long arc quads Seated Reps: 12 Assessment Patient much improved on this date with all right knee ROM and gross motor skills. Patient instructed to perform HEP issued by physician at preop. Patient voices understanding. PT Detention Goals Detention Goals PT Light Cleaner Goals Time Frame: Feb 07, 2022 Roll Left & Right (QC): 6 Sit to Lying (QC): 6 Lying-Sitting on Side/Bed(QC): 6 Sit to Stand (QC): 6 Chair/Eqe-yq-Eqaaw Xfer(QC): 6 Walk 10 feet (QC): 6 Walk 50ft with 2 Turns (QC): 6 Walk 150 ft (QC): 6 PT Plan Treatment/Plan Treatment Plan: Discontinue PT, goals met Treatment Plan: Bed Mobility, Education, Functional Activity Karen, Functional Strength, Gait, Safety, Therapeutic Exercise, Transfers Treatment Duration: Feb 07, 2022 Frequency: 11 times per week Estimated Hrs Per Day: .25 hour per day Patient and/or Family Agrees t: Yes Time/GCodes Time In: 805 Time Out: 828 Total Billed Treatment Time: 23 Total Billed Treatment 1 visit FA 13 min EX 10 min HEATHER ZAMBRANO PT Feb 02, 2022 10:00
== END 2022-02-02 09:48 | disposition home health service (06) | DRG 470 ==
LOC: 4TH 08:00 → SURG 08:01 → 4TH 11:49
PROVIDERS: ADMIT Orthopaedic Surgery; ATTEND Orthopaedic Surgery
PROC: 0SRC0J9 Replacement of Right Knee Joint with Synthetic Substitute, Cemented, Open Approach (ICD-10-PCS; principal; 2022-01-31 09:04)
DX: M17.11 Unilateral primary osteoarthritis, right knee (principal); E11.9 Type 2 diabetes mellitus without complications; I10 Essential (primary) hypertension; E78.00 Pure hypercholesterolemia, unspecified; F17.210 Nicotine dependence, cigarettes, uncomplicated; K21.9 Gastro-esophageal reflux disease without esophagitis; F41.9 Anxiety disorder, unspecified; F32.A Depression, unspecified; Z79.84 Long term (current) use of oral hypoglycemic drugs
CPT/HCPCS: 36415; 73560; 85014; 85018; 86850; 86900; 86901; 94760

== ENCOUNTER 2022-03-05 11:10 | Outpatient (RCR) | payer OTHER ==
[~2022-03-05 11:10] MED LIST changes: -CEFUROXIME INJECTION 1,500 MG in NS (IVPB) 50 ML IV ONE; -METF500S5 PO; +METF500S7 PO; -NALOXONE 0.4 MG/ML 1 ML (NARCAN) VIAL IV PRN; -ONDANSETRON 4 MG/2 ML (SDV) Z0FRAN IVP PRN; -diphenhydrAMINE 50 MG/ML INJ (BENADRYL) IVP PRN; -fentaNYL PCA 1,000 MCG/100 ML IV SCH
== END 2022-03-07 | disposition home or self-care (01) ==
PROVIDERS: ATTEND Orthopaedic Surgery
DX: M17.11 Unilateral primary osteoarthritis, right knee (principal)

== ENCOUNTER 2022-04-02 12:57 | Outpatient (RCR) | payer OTHER | END 2022-04-06 | disposition home or self-care (01) | PROVIDERS: ATTEND Orthopaedic Surgery | DX: M17.11 Unilateral primary osteoarthritis, right knee (principal); I10 Essential (primary) hypertension ==

== ENCOUNTER 2022-04-16 15:28 | Outpatient (RCR) | payer OTHER | END 2022-04-16 16:25 | disposition home or self-care (01) | PROVIDERS: ATTEND Orthopaedic Surgery | DX: M17.11 Unilateral primary osteoarthritis, right knee (principal); I10 Essential (primary) hypertension; E11.9 Type 2 diabetes mellitus without complications; Z96.651 Presence of right artificial knee joint ==